=== PATIENT | female | born 1955 | race Caucasian/White ===

== ENCOUNTER → 2021-02-25 | Outpatient (CLI) | payer MEDICARE, OTHER ==
--- NOTE | 2021-02-26 05:06 | MR ---
EXAMINATION TYPE: MR knee LT wo con DATE OF EXAM: 02/25/2021 COMPARISON: HISTORY: Left knee pain and swelling for 1 month. Multiplanar multiecho imaging of the left knee was performed without contrast. The anterior and posterior cruciate ligaments are intact. There is horizontal tear through the can handler ior horn of the medial meniscus extending to the posterior and inferior surface. The lateral meniscus appears intact. The collateral ligaments appear intact. There is no evidence for fracture. I see no bony destructive process. There is mild knee joint effusion. There is subcutaneous edema anterior to the patella. IMPRESSION: No evidence of ligamentous tear. Knee joint effusion. Moderate oblique tear through the posterior horn of the medial meniscus. Anterio r subcutaneous edema.
== END | disposition home or self-care (01) ==
LOC: RADMRIMAIN 18:58
PROVIDERS: ATTEND Orthopaedic Surgery
DX: M23.322 Other meniscus derangements, posterior horn of medial meniscus, left knee (principal); M25.462 Effusion, left knee

== ENCOUNTER → 2021-03-10 | Outpatient (CLI) | payer MEDICARE, OTHER ==
[2021-03-10 15:27] LABS: Basophils # (A) 0.04 X 10*3/uL (0.00-0.10); Basophils % (A) 0.6 %; Eosinophils # (A) 0.06 X 10*3/uL (0.04-0.35); Eosinophils % (A) 0.8 %; HCT 40.6 % (37.2-46.3); HGB 13.1 g/dL (12.0-15.0); Lymphocytes # (A) 2.16 X 10*3/uL (0.90-5.00); Lymphocytes % (A) 30.4 %; MCHC 32.3 g/dL (32.0-37.0); MCV 96.2 fL (80.0-97.0); Mean Platelet Volume 11.5 fL (9.5-12.2); Monocytes # (A) 0.42 X 10*3/uL (0.20-1.00); Monocytes % (A) 5.9 %; Neutrophils # (A) 4.39 X 10*3/uL (1.80-7.70); Neutrophils % (A) 61.9 %; Platelet Count 286 X 10*3/uL (140-440); RBC 4.22 X 10*6/uL (4.10-5.20); RDW 12.4 % (11.5-14.5)
[2021-03-10 19:34] LABS: Anion Gap 8.5 mmol/L (4.00-12.00); Carbon Dioxide 26.5 mmol/L (21.6-31.8); Potassium 4.5 mmol/L (3.5-5.5)
== END | disposition home or self-care (01) ==
LOC: LABWHC1 09:28
PROVIDERS: ATTEND Orthopaedic Surgery
DX: Z01.812 Encounter for preprocedural laboratory examination (principal); M23.92 Unspecified internal derangement of left knee
CPT/HCPCS: 36415; 80051; 85025

== ENCOUNTER → 2021-04-03 | Day surgery (SDC) | payer MEDICARE, OTHER ==
[2021-04-01 16:02] VITALS: BMI 26.4
--- NOTE | 2021-04-02 08:58 | HP ---
HISTORY AND PHYSICAL CHIEF COMPLAINT: Left knee pain. 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 She notes medial pain with weightbearing activities along with giving way. She also notes swelling and stiffness. She has tried an exercise program and activity modifications without much relief. PAST MEDICAL HISTORY: Negative. PAST SURGICAL HISTORY: Hysterectomy. CURRENT MEDICATIONS: Advil. ALLERGIES: SULFA. FAMILY HISTORY: Significant for cancer. SOCIAL HISTORY: Negative for current tobacco or alcohol use. REVIEW OF SYSTEMS: Sixteen-point review of systems is otherwise reviewed and is noncontributory. EXAMINATION: The patient is approximately 5 foot 6, 168 pounds of endomorphic habitus. HEENT exam is nonfocal. Neck is supple. She has painless passive motion of her left hip. Straight leg raise is negative. Active motion left knee -12 to 115 degrees of flexion. She has a moderate effusion. She is tender about the medial joint line. Collaterals are stable. Cisco is negative. Enrique's elicits medial pain. Her distal neurovascular exam appears intact in the left lower extremity. MRI report left knee 02/25/2021 shows a posterior medial meniscal tear. IMPRESSION: Internal derangement, left knee with symptomatic medial meniscal tear. RECOMMENDATIONS: I talked to the patient at length regarding her condition and treatment options. At this point, she is having persistent/progressive pain and mechanical symptoms despite previous conservative measures. After thorough discussion, she opts to proceed with surgery. We will plan to proceed with arthroscopic evaluation with probable partial medial meniscectomy. Risks and benefits were discussed at length in layman's terms. MMODL / IJN: [id number] /
[~2021-04-03] MED LIST: DEXAMETHASONE SOD PHOSPHATE 4 MG/ML 1 ML VIAL IV ONE; HYDROmorphone 0.5 MG/0.5 ML SYRINGE IVP ONE; HYDROmorphone 0.5 MG/0.5 ML SYRINGE IVP PRN; KETOROLAC 15 MG/ML 1 ML VIAL ONE; LACTATED RINGERS 1,000 ML IV ONE; LACTATED RINGERS 1,000 ML IV SCH; LIDOCAINE 1% INJ 10MG/ML (20 ML MDV) ONE; MIDAZOLAM 2 MG/2 ML VIAL IV PRN; MIDAZOLAM 2 MG/2 ML VIAL ONE; PROPOFOL 10 MG/ML 20 ML VIAL IV ONE; diphenhydrAMINE 50 MG/ML 1 ML VIAL IVP ONE; diphenhydrAMINE 50 MG/ML 1 ML VIAL ONE; fentaNYL (PF) 50 MCG/ML 2 ML AMP ONE
[2021-04-03] MEDS: ONDANSETRON 4 MG/2 ML VIAL IVP ONE ×2 (07:21→10:04)
--- NOTE | 2021-04-03 09:05 | P.OP ---
Date of Procedure: 04/03/21 Preoperative Diagnosis: Left knee medial meniscal tear Postoperative Diagnosis: Same Procedure(s) Performed: Left knee arthroscopic partial medial meniscectomy [facility] Surgeon: Tay Yuan Estimated Blood Loss (ml): 10 Pathology: none sent Condition: stable Disposition: PACU Indications for Procedure: The patient's a 66-year-old female presents with progressive left knee pain and mechanical symptoms despite previous conservative measures. A discussion of the risks and benefits of operative intervention versus continued conservative measures was made with patient. She opted to proceed with surgery. Operative risks to include infection, neurovascular injury, development of blood clots, possible incomplete resolution of symptoms, possible worsening symptoms and need for subsequent procedures was discussed. Informed consent was obtained. Operative Findings: As below Description of Procedure: The patient was brought to the operating room, and after induction of general anesthesia examined the left knee. Collaterals were stable, Cisco was negative, and posterior drawer was negative. The left lower extremity was prepped and draped in a normal fashion. A superior lateral portal was made thro ugh a 3 mm skin incision superior and lateral to the patella. This was used for outflow. A lateral portal was made through a 5 mm vertical skin incision lateral to the patella tendon above the joint line. Diagnostic arthroscopy was performed. On inspection of the medial compartment, a complex tear involving the middle to posterior one third of the medial meniscus was noted in the white- red junction. This was debrided back to stable base with straight baskets and a motorized shaver. The remaining medial meniscus was stable and intact. Grade 2 chondral changes were noted diffusely in the medial compartment. On inspection of the notch, the anterior cruciate ligament appeared to be intact. On inspection of the lateral compartment, no significant cartilage or meniscal pathology was noted. On inspection of the patellofemoral articulation on there is chondral fibrillation however no loose chondral fragments. The gutters were clear debris. The knee was then thoroughly irrigated. The portals were closed with Steri-Strips. A sterile dressing was applied in addition to a compression stocking. The patient was awoken from general anesthesia and transferred to recovery room in good condition. Blood loss was estimated at 10 mL. No complications were incurred.
[2021-04-03 09:14] VITALS: TEMP 97.9
[2021-04-03 11:55] VITALS: BP 154/89; PULSE 80; RESP 17
== END | disposition home or self-care (01) ==
LOC: OR 06:44
PROVIDERS: ATTEND Orthopaedic Surgery
DX: S83.242A Other tear of medial meniscus, current injury, left knee, initial encounter (principal); Z88.2 Allergy status to sulfonamides; Z88.5 Allergy status to narcotic agent
CPT/HCPCS: 29881; J2250; J1200; J1100; J0690; J2405; J2001; J3010; J1885; J2704; J1170

== ENCOUNTER → 2022-04-08 | Outpatient (CLI) | payer MEDICARE, OTHER | END | disposition home or self-care (01) | LOC: LABPAT 08:48 | PROVIDERS: ATTEND Orthopaedic Surgery | DX: Z01.812 Encounter for preprocedural laboratory examination (principal); Z22.322 Carrier or suspected carrier of Methicillin resistant Staphylococcus aureus; M17.12 Unilateral primary osteoarthritis, left knee | CPT/HCPCS: 87070 ==

== ENCOUNTER → 2022-04-27 | Day surgery (SDC) | payer MEDICARE, OTHER ==
[2022-04-21 09:37] VITALS: BMI 26.0
--- NOTE | 2022-04-26 12:24 | HP ---
HISTORY AND PHYSICAL CHIEF COMPLAINT: Left knee pain. 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 She is having pain with weightbearing activities along with swelling and stiffness. She had previous injections along with medications, without much relief. She has also had a previous arthroscopy. PAST MEDICAL HISTORY: Significant for arthritis. PAST SURGICAL HISTORY: Significant for hysterectomy and left knee arthroscopy. CURRENT MEDICATIONS: Ibuprofen. ALLERGIES: SULFA. FAMILY HISTORY: Significant for cancer. SOCIAL HISTORY: Negative for current tobacco or alcohol use. REVIEW OF SYSTEMS: 16-point review of systems otherwise reviewed and is noncontributory. PHYSICAL EXAMINATION: On examination, the patient is approximately 5 foot 6, 160 pounds of mesomorphic habitus. HEENT exam is nonfocal. Neck is supple. She has painless passive motion of the left hip. Straight-leg raise is negative. Active motion left knee -13 to 90 degrees of flexion. She has a mild effusion. She is tender about the medial joint line. Collaterals are stable. Cisco is negative. Enrique's is equivocal. She has genu varum alignment. Her distal neurovascular exam appears intact in the left lower extremity. Previous weightbearing notch, lateral Merchant views of the left knee obtained in the office show severe medial compartment narrowing. IMPRESSION: Left knee severe medial and moderate patellofemoral compartment osteoarthrosis. PLAN: I talked to the patient at length regarding her condition along with treatment options. At this point she is quite limited and symptomatic secondary to osteoarthrosis despite previous conservative measures. After thorough discussion, she opts to proceed with surgery. We will plan to proceed with a left total knee arthroplasty. We will institute DVT prophylaxis postoperatively. Risks and benefits were discussed at length in layman's terms. MMODL / IJN: [id number] /
[~2022-04-27] MED LIST changes: +ACETAMINOPHEN TAB 500 MG TAB PO PRN; +HYDROcodone/APAP 5-325MG 1 EACH TAB PO ONE; +HYDROcodone/APAP 5-325MG 1 EACH TAB PO PRN; +HYDROcodone/APAP 7.5-325MG 1 EACH TAB PO PRN; -HYDROmorphone 0.5 MG/0.5 ML SYRINGE IVP ONE; -LACTATED RINGERS 1,000 ML IV SCH; +LIDOCAINE 1% (10MG/ML) FOR IV START INTRADERMA PRN; -LIDOCAINE 1% INJ 10MG/ML (20 ML MDV) ONE; +LIDOCAINE 2% INJ 20 MG/ML (2 ML VIAL) ONE; +MELOXICAM 7.5 MG TAB PO PRN; -MIDAZOLAM 2 MG/2 ML VIAL IV PRN; +MIDAZOLAM 2 MG/2 ML VIAL IVP ONE; -MIDAZOLAM 2 MG/2 ML VIAL ONE; +NALOXONE 0.4 MG/ML 1 ML VIAL IV PRN; +ONDANSETRON 4 MG/2 ML VIAL IVP ONE; +ONDANSETRON 4 MG/2 ML VIAL IVP PRN; +RIVAROXABAN 10 MG TAB PO SCH; +ROPIVACAINE 0.2%-NS ON-Q PUMP 1,090 MG, EMPTY PAIN BALL 1 EACH MISCELLANE PRN; +ROPIVACAINE 0.2%-NS ON-Q PUMP 2 MG/ML EACH MISCELLANE ONE; +ROPIVACAINE 5MG/ML 20ML VIAL ONE; +SENNOSIDES-DOCUSATE SODIUM 1 EACH TAB PO SCH; +TRANEXAMIC ACID IN NACL,ISO-OS 1,000 MG in SALINE 1 100ML.BAG IVPB PRN; +TRANEXAMIC ACID IN NACL,ISO-OS 1,000 MG/100 ML BAG ONE; +ceFAZolin 1,000 MG in SODIUM CHLORIDE 0.9% 1,000 ML IRRIGATION ONE; -diphenhydrAMINE 50 MG/ML 1 ML VIAL IVP ONE; +fentaNYL (PF) 50 MCG/ML 2 ML AMP IVP ONE
[2022-04-27] MEDS: LACTATED RINGERS 1,000 ML IV SCH ×2 (06:55→07:44)
--- NOTE | 2022-04-27 09:28 | P.ANPRN ---
Procedure Note - Anesthesia - Nerve Block Performed Left Adductor Canal Time Out Performed: Yes (:) Date of Procedure: 04/27/22 Procedure Start Time: Procedure Stop Time: Location of Patient: PreOp Indication: Acute Post-Operative Pain, Requested by Surgeon (Dr Yuan) Sedation Type: Sedate with meaningful contact maintained Preparation: Sterile Prep, Sterile Dressing Position: Supine Catheter: Indwelling Needle Types: Pajunk Needle Gauge: 21 Ultrasound used to visualize needle placement: Yes Ultrasound used to observe medication spread: Yes Injectate: 0.5% Ropivacaine (see comment for volume) (15cc) Blood Aspirated: No Pain Paresthesia on Injection Noted: No Resistance on Injection: Normal Image Stored and Saved: Yes Events: Uneventful and Well Tolerated
--- NOTE | 2022-04-27 09:29 | P.ANPRN ---
Procedure Note - Anesthesia - Nerve Block Performed Left iPack Time Out Performed: Yes Date of Procedure: 04/27/22 Procedure Start Time: : Procedure Stop Time: : Location of Patient: PreOp Indication: Acute Post-Operative Pain, Requested by Surgeon (Dr Yuan) Sedation Type: Sedate with meaningful contact maintained Preparation: Sterile Prep Position: Supine Catheter: None Needle Types: Pajunk Needle Gauge: 21 Ultrasound used to visualize needle placement: Yes Ultrasound used to observe medication spread: Yes Injectate: 0.5% Ropivacaine (see comment for volume) (15cc) Blood Aspirated: No Pain Paresthesia on Injection Noted: No Resistance on Injection: Normal Image Stored and Saved: Yes Events: Uneventful and Well Tolerated
--- NOTE | 2022-04-27 09:35 | P.OP ---
Date of Procedure: 04/27/22 Preoperative Diagnosis: Left knee severe tricompartmental osteoarthrosis Postoperative Diagnosis: Same Procedure(s) Performed: Left total knee arthroplastycementedcruciate retaining Implants: Depuy attuned size 6 narrow cemented femoral component, size 5 cemented tibial component, 10 mm articular surface, 35 mm cemented patellar component. This is a cruciate retaining implant. 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 A discussion of the risks and benefits of operative intervention versus continued conservative measures made with patient. She opted to proceed. Operative risks to include infection, neurovascular injury, development of blood clots, fracture, possible need for subsequent subsequent procedures was discussed. Informed consent was obtained. Operative Findings: As below Description of Procedure: The patient was brought to the operating room, and after induction of spinal anesthesia the left lower extremity was prepped and draped in a normal fashion. The tourniquet was inflated to 270 mmHg. A longitudinal incision extending 3 finger breaths above the superior pole of the patella extending to the medial aspect the tibial tubercle was then made. The skin and subcutaneous tissues were divided sharply. Electrocautery was used for hemostasis. A medial parapatellar arthrotomy was then performed. The medial soft tissues to include the superficial and deep portions of the medial collateral ligament as well as the medial hamstring tendons were elevated subperiosteally. The proximal medial tibia osteophytes were carefully removed. The patella was everted. The knee was flexed. A portion of the retropatellar fat pad was excised sharply. The anterior cruciate ligament was sacrificed. A starting hole was made in the distal femur 1 cm anterior to the posterior cruciate origin. An intramedullary femoral guide was gently inserted planning on 5 valgus distal cut with 9 mm distal resection. The cutting block was pinned in place. The distal cut was then made. The posterior referencing sizing guide was utilized. 3 of external rotation was built into the system and verified off the trans- epicondylar axis and the posterior condyles. I felt size 6 narrow was most appropriate. The cutting block was pinned in place. The anterior, posterior, and chamfer cuts were then made. The bone fragments were removed. A sulcus cut was then made with the appropriate guide. The trial size 6 narrow femoral component was then placed and was fully seated. There was good anterior to posterior and medial to lateral fit. The distal peg holes were then drilled. The trial component was then removed. Attention was then paid towards preparing the proximal tibia. An extra medullary guide was utilized in line with the tibial shaft and second metatarsal distally. A 7 posterior slope was planned. I planned on 2 mm resection from the medial compartment. The cutting block was pinned in place. The proximal tibial cut was then made. The bone was removed in one fragment. The remnants of the medial and lateral menisci were excised the capsule junction with electrocautery. The tibia sized most appropriately at size 5. The posterior osteophytes off the distal femur were carefully removed with a curved osteotome. The trial tibial and femoral components were placed along with a 10 millimeters articular surface. I was able to obtain full flexion and extension with good stability with varus and valgus stress. After several flexion and extension cycles, the tibial rotation was marked with electrocautery in line with the medial one third of the tibial tubercle. Attention was then paid towards preparing the patella. A patella reamer was utilized taking this down to 14 mm of bone stock. A good flush cut was made. The patella sized most appropriately at 35 millimeters. The peg holes were then drilled. The trial component was placed. The knee was taken through a range of motion. I had good patellofemoral tracking with no hands technique. The trial components were then removed. The tibia was prepared in the appropriate rotation with appropriate drill and keel punch. The flexion and extension gaps were checked and felt to be symmetric. The posterior soft tissues were injected with ropivacaine. The bony surfaces were prepared with pulsatile lavage and dried. The deep tibial component was then cemented in place and was fully seated. Excess cement was removed. The femoral component was cemented in place and was fully seated. Again excess cement was removed. The trial 10 millimeters surface was then inserted in the knee was put in full extension. The patella component was cemented in place. After the cement had sufficiently hardened, the knee was again taken through a range of motion. Again there was good stability in flexion and extension with varus and valgus stress. The trial articular surface was then removed. The final articular surface was placed and was impacted. Care was taken to avoid any soft tissue interposition. Pulsatile lavage was again utilized. The tourniquet was deflated with approximately 50 minutes total tourniquet time. There was minimal drainage therefore a deep drain was not placed. The medial parapatellar arthrotomy was then closed with #2 Ethibond suture. The subcutaneous tissues were reapproximated interrupted 2- 0 Vicryl sutures. The skin was reapproximated with 3-0 subarticular strata fix suture. Skin tape and adhesive was applied. A sterile dressing was applied. The patient was then awoken from sedation and transferred to recovery room in good condition. Blood loss was estimated at 50 milliliters. No complications were incurred. Sponge and needle counts were correct at the end the case. Mane HART assisted during the major components this case to include exposure, bone resection, and implantation.
--- NOTE | 2022-04-27 10:01 | XR ---
EXAMINATION TYPE: XR knee limited LT DATE OF EXAM: 04/27/2022 9:56 AM INDICATION: Patient age:Female; 67 years old; Reason for study: Evaluation for Postop abnormality and alignment; COMPARISON: MR knee 03/01/2021. TECHNIQUE: The Left knee(s) was examined in 3 projections. Frontal, lateral and oblique. FINDINGS: Total left knee arthroplasty changes. Hardware appears intact. There is appropriate anatom ic alignment. No evidence of acute fracture. Scattered lucencies consistent with intra-articular and subcutaneous postsurgical gas. IMPRESSION: 1. Post left knee arthroplasty changes appropriate hardware position without evidence of fracture.
[2022-04-27 10:03] VITALS: TEMP 96.8
[2022-04-27 10:16] VITALS: RESP 16
[2022-04-27 11:44] VITALS: BP 147/80; PULSE 72
== END | disposition home health service (06) ==
LOC: OR 05:57
PROVIDERS: ATTEND Orthopaedic Surgery
DX: M17.12 Unilateral primary osteoarthritis, left knee (principal); G89.18 Other acute postprocedural pain; E78.5 Hyperlipidemia, unspecified; Z88.2 Allergy status to sulfonamides; Z88.8 Allergy status to other drugs, medicaments and biological substances; Z88.3 Allergy status to other anti-infective agents; Z80.0 Family history of malignant neoplasm of digestive organs; Z80.8 Family history of malignant neoplasm of other organs or systems; Z83.3 Family history of diabetes mellitus; Z82.49 Family history of ischemic heart disease and other diseases of the circulatory system; Z84.89 Family history of other specified conditions; Z80.6 Family history of leukemia
CPT/HCPCS: 64999 ×2; 76942 ×2; 64447; 27447; 97110; 97161; 64448; 88300; 73560; C1713 ×2; C1776; J2250; J1200; J1100; J0690 ×2; J2405; J3010; J1885; J2704; J1170; J2795 ×2; J1790; J2001

== ENCOUNTER → 2022-08-06 | Outpatient (CLI) | payer MEDICARE, OTHER ==
--- NOTE | 2022-08-09 07:43 | MM ---
Reason for Exam: Screening (asymptomatic). Last mammogram was performed 2 year(s) and 0 month(s) ago. Patient History: Menarche at age 15. First Full-Term at age 20. Hysterectomy at age 47. Postmenopausal. Sister had breast cancer under age 50. Risk Values: Natalia 5 year model risk: 3.0%. NCI Lifetime model risk: 9.5%. Prior Study Comparison: 02/12/2019 Bilateral MG 3D screening mammo w/cad, [facility]. 07/24/2020 Left MG 3D work up w/cad LT - 2, [facility]. 07/24/2020 Bilateral MG 3D screening mammo w/cad, [facility]. Tissue Density: The breast tissue is heterogeneously dense. This may lower the sensitivity of mammography. Findings: Analyzed By CAD. There is no suspicious group of microcalcifications or new suspicious mass in either breast. Similar-appearing calcifications bilaterally. Overall Assessment: Benign, BI-RAD 2 Management: Screening Mammogram of both breasts in 1 year. A clinical breast exam by your physician is recommended on an annual basis and results should be correlated with mammographic findings. [facility] will attempt to contact patient to return for supplemental views and ultrasound if indicated. Electronically signed and approved by: Donnell Pulido DO
== END | disposition home or self-care (01) ==
LOC: RADMAMWWP 06:58
PROVIDERS: ATTEND Family Medicine
DX: Z12.31 Encounter for screening mammogram for malignant neoplasm of breast (principal)
CPT/HCPCS: 77063; 77067

== ENCOUNTER → 2023-08-25 | Outpatient (CLI) | payer MEDICARE, OTHER ==
--- NOTE | 2023-08-25 08:26 | MM ---
Reason for Exam: Screening (asymptomatic). Last mammogram was performed 1 year(s) and 1 month(s) ago. Patient History: Menarche at age 15. First Full-Term at age 20. Hysterectomy at age 47. Postmenopausal. Sister had breast cancer under age 50. Risk Values: Natalia 5 year model risk: 3.0%. NCI Lifetime model risk: 9.1%. Prior Study Comparison: 07/24/2020 Left MG 3D work up w/cad LT - 2, [facility]. 07/24/2020 Bilateral MG 3D screening mammo w/cad, [facility]. 08/06/2022 Bilateral MG 3D screening mammo w/cad, [facility]. Tissue Density: The breast tissue is heterogeneously dense. This may lower the sensitivity of mammography. Findings: Analyzed By CAD. Right: Asymmetry right breast posterior nipple line on CC view 7.5 cm nipple measuring 12 mm. Asymmetry left breast posterior nipple and slightly medial on CC view 5.8 mm the nipple measuring 11 mm is stable from priors. Left: There is no suspicious group of microcalcifications or new suspicious mass. Overall Assessment: Incomplete: need additional imaging evaluation, BI-RAD 0 Management: Diagnostic Mammogram of the right breast. [facility] will attempt to contact patient to return for supplemental views and ultrasound if indicated. Patient should continue monthly self-breast exams. A clinical breast exam by your physician is recommended on an annual basis. This exam should not preclude additional follow-up of suspicious palpable abnormalities. Note on Natalia scores and lifetime risk: 1. A Natalia score greater than 3% is considered moderate risk. If this is the case, consider specialist referral to assess eligibility for a risk reducing agent. 2. If overall lifetime risk for the development of breast cancer is 20% or higher, the patient may qualify for future screening with alternating mammogram and breast MRI. Electronically signed and approved by: Donnell Pulido DO
== END | disposition home or self-care (01) ==
LOC: RADMAMWWP 07:42
PROVIDERS: ATTEND Family Medicine
DX: Z12.31 Encounter for screening mammogram for malignant neoplasm of breast (principal); Z78.0 Asymptomatic menopausal state; Z80.3 Family history of malignant neoplasm of breast
CPT/HCPCS: 77063; 77067

== ENCOUNTER → 2023-09-05 | Outpatient (CLI) | payer MEDICARE, OTHER ==
--- NOTE | 2023-09-05 08:37 | MM ---
Reason for Exam: Additional evaluation requested from abnormal screening. Last screening mammogram was performed less than 1 month ago. Patient History: Menarche at age 15. First Full-Term at age 20. Hysterectomy at age 47. Postmenopausal. Sister had breast cancer under age 50. Risk Values: Natalia 5 year model risk: 3.0%. NCI Lifetime model risk: 9.1%. Tissue Density: Right: The breast tissue is heterogeneously dense. This may lower the sensitivity of mammography. Findings: Analyzed By CAD. Upper-outer quadrant 6.5 cm from nipple there is an area of spiculation which persists. Ultrasound is recommended. Consultations noted. Overall Assessment: Incomplete: need additional imaging evaluation, BI-RAD 0 Management: Diagnostic Breast Ultrasound of the right breast. . Results were given to the patient verbally at the time of exam. Patient should continue monthly self-breast exams. A clinical breast exam by your physician is recommended on an annual basis. This exam should not preclude additional follow-up of suspicious palpable abnormalities. Note on Natalia scores and lifetime risk: 1. A Natalia score greater than 3% is considered moderate risk. If this is the case, consider specialist referral to assess eligibility for a risk reducing agent. 2. If overall lifetime risk for the development of breast cancer is 20% or higher, the patient may qualify for future screening with alternating mammogram and breast MRI. Electronically signed and approved by: Trey Kendrick M.D. Radiologis
--- NOTE | 2023-09-05 09:07 | USB ---
Reason for Exam: Additional evaluation requested from abnormal screening. Patient History: Menarche at age 15. First Full-Term at age 20. Hysterectomy at age 47. Postmenopausal. Sister had breast cancer under age 50. Risk Values: Natalia 5 year model risk: 3.0%. NCI Lifetime model risk: 9.1%. Technique: Method: Targeted. Prior Study Comparison: 07/24/2020 Bilateral MG 3D screening mammo w/cad, [facility]. 08/06/2022 Bilateral MG 3D screening mammo w/cad, [facility]. 08/25/2023 Bilateral MG 3D screening mammo w/cad, [facility]. Findings: The upper outer quadrant of the right breast, the axilla of the right breast and the retroareolar of the right breast were scanned. Hypoechoic mass at the right 11:00 position 6 cm from the nipple measuring approximately 1.8 x 0.6 x 1.3 cm.. Overall Assessment: Suspicious, BI-RAD 4 Management: Ultrasound Core Biopsy of the right breast. A clinical breast exam by your physician is recommended on an annual basis and results should be correlated with mammographic findings. This exam should not preclude additional follow-up of suspicious palpable abnormalities. Results were given to the patient verbally at the time of exam. Electronically signed and approved by: Trey Kendrick M.D. Radiologis
== END | disposition home or self-care (01) ==
LOC: RADMAMWWP 08:04
PROVIDERS: ATTEND Family Medicine
DX: N63.11 Unspecified lump in the right breast, upper outer quadrant (principal); R92.331 Mammographic heterogeneous density, right breast; Z78.0 Asymptomatic menopausal state; Z80.3 Family history of malignant neoplasm of breast
CPT/HCPCS: 77065; 76642; G0279; 77061

== ENCOUNTER → 2023-09-15 | Day surgery (SDC) | payer MEDICARE, OTHER ==
--- NOTE | 2023-09-21 10:31 | MM ---
Reason for Exam: Post Procedure Mammogram. Last screening mammogram was performed less than 1 month ago. Patient History: Menarche at age 15. First Full-Term at age 20. Hysterectomy at age 47. Postmenopausal. Sister had breast cancer under age 50. Risk Values: Natalia 5 year model risk: 3.0%. NCI Lifetime model risk: 9.1%. Prior Study Comparison: 08/06/2022 Bilateral MG 3D screening mammo w/cad, [facility]. 08/25/2023 Bilateral MG 3D screening mammo w/cad, [facility]. 09/05/2023 Right MG 3D work up w/cad RT, [facility]. Tissue Density: Right: The breast tissue is heterogeneously dense. This may lower the sensitivity of mammography. Pathology Description: Location: 11 o'clock. Marker Left Behind. Needle Type: Celero Cores: 3 Gauge: 12 The procedure of ultrasound guided core biopsy was explained to the patient. Benefits, alternatives, and risks were discussed. An informed consent was then obtained. The patient was placed in supine positioning for imaging and for the procedure. The overlying skin was prepped and draped in usual sterile fashion. Lidocaine buffered with bicarbonate was used as anesthetic into the skin and subcutaneous tissue up to area of concern in the right 11:00 breast. A moody was made with surgical scalpel. Under ultrasound guidance, a 12-gauge vacuum assisted biopsy gun device was used to obtain 3 core samples. Following this, a biopsy clip was left in lesion. The patient tolerated the procedure well without any immediate complication. The patient was kept in the radiology department for short stay after the procedure and then discharged home in stable condition. Postprocedure mammogram: The patient was transferred to mammography for physician ordered post procedure mammogram for clip placement verification. Impression: Successful, uncomplicated ultrasound guided core biopsy of area of concern in the right 11:00 breast, full pathology results to follow. Pathology Results: Result: Benign, Fibroadenoma. RIGHT BREAST, 11:00, ULTRASOUND GUIDED NEEDLE CORE BIOPSY: Hyalinized fibroadenoma with microcalcifications. Overall Assessment: Benign Assessment: MG diagnostic mammo RT wo CAD - Right: Benign, BI-RAD 2. Management: Diagnostic Mammogram of the right breast in 6 months. Electronically signed and approved by: Trey Kednrick M.D. Radiologis
== END ==
LOC: RADUSWWP 12:44
PROVIDERS: ATTEND Surgery
DX: D24.1 Benign neoplasm of right breast (principal)
CPT/HCPCS: 77065; 19083; A4648

== ENCOUNTER → 2023-09-28 | Outpatient (CLI) | payer MEDICARE, OTHER ==
[2023-09-28 08:30] VITALS: BP 175/91; PULSE 90; RESP 18; TEMP 97.7
--- NOTE | 2023-09-28 08:35 | P.GSHP ---
History of Present Illness H&P Date: 09/28/23 Chief Complaint: mass right breast Princess is a 68 year old female seen in consultation for Dr. Aguiar regarding a lesion in the right breast. She had a right breast mammogram on 08-25-23. This led to further workup of the right breast and an ultrasound core biopsy on 09-15. This was a fibroadenoma. The lesion was 1.8 by 1.3 cm in size. The patient did not feel anything in her breasts. She gets mammograms every year. Approximately 30 years ago she had a fibroadenoma removed from the left breast. Otherwise she has not had any surgery on her breast. She is not complaining of any pain in her breast. She tolerated the procedure without difficulty. She's not had any recent trauma or infection in the breast. Caffeine: 1 can/week of pop nicotine: none chocolate: occasional BCP: used for 4 years in the remote past Family History: sister: breast cancer mets to bones father: colon cancer sister: leukemia Hormonal History: menarche: 14 , breast fed: no, age at first : 21 menopause: hysterectomy in 40's did not take ovaries done for bleeding Surgical History: hysterectomy left knee replacement bilateral cataract surgery left breast surgery tonsillectomy Medical History: no problems Social History: Nicotine: Negative Alcohol: Negative Drugs:negative - Constitutional Constitutional: Denies chills, Denies fever - EENT Eyes: denies blurred vision, denies pain Ears: bilateral: tinnitus, deny: decreased hearing Ears, nose, mouth and throat: Denies headache, Denies sore throat - Breasts Breasts: bilateral: as per HPI - Cardiovascular Cardiovascular: Denies chest pain, Denies shortness of breath - Respiratory Respiratory: Reports cough - Gastrointestinal Gastrointestinal: Denies abdominal pain, Denies diarrhea, Denies nausea, Denies vomiting - Genitourinary (Female) Genitourinary: Denies dysuria, Denies hematuria - Menstruation Menstruation: Reports postmenopausal - Musculoskeletal Musculoskeletal: Reports as per HPI - Integumentary Integumentary: Denies pruritus, Denies rash - Neurological Neurological: Denies numbness, Denies weakness - Psychiatric Psychiatric: Denies anxiety, Denies depression - Endocrine Endocrine: Denies fatigue, Denies weight change - Hematologic/Lymphatic Comment: none - Allergic/Immunologic Allergic/Immunologic: Reports seasonal allergies Past Medical History Additional Past Medical History / Comment(s): left knee pain and swelling, History of Any Multi-Drug Resistant Organisms: None Reported Past Surgical History: Breast Surgery, Hysterectomy, Orthopedic Surgery, Tonsillectomy Additional Past Surgical History / Comment(s): Left knee replacement March 2022. fibrocystic tumor removed left breast Past Anesthesia/Blood Transfusion Reactions: Motion Sickness, Postoperative Nausea & Vomiting (PONV) Additional Past Anesthesia/Blood Transfusion Reaction / Comment(s): "severe PONV " Past Psychological History: No Psychological Hx Reported Smoking Status: Never smoker Past Alcohol Use History: None Reported Past Drug Use History: None Reported - Past Family History Father Family Medical History: Cancer Sister(s) Family Medical History: Cancer, Deep Vein Thrombosis (DVT) Additional Family Medical History / Comment(s): leukemia Medications and Allergies Home Medications Medication Instructions Recorded Confirmed Type No Known Home Medications 09/06/23 09/28/23 History Allergies Allergy/AdvReac Type Severity Reaction Status Date / Time azithromycin Allergy Rash/Hives Verified 09/28/23 08:10 [From Zithromax Z-Lambert] Sulfa (Sulfonamide Allergy Rash/Hives Verified 09/28/23 08:10 Antibiotics) Surgical - Exam - General no distress - Eyes normal ocular movement - ENT no hearing loss - Neck trachea midline - Respiratory normal respiratory effort, clear to auscultation - Cardiovascular Rhythm: regular Heart Sounds: normal: S1, S2 - Abdomen Abdomen: soft, non tender, no guarding, no rigid, no rebound - Integumentary normal turgor - Neurologic no disoriented, no combative - Musculoskeletal normal gait - Psychiatric oriented to time, oriented to person, oriented to place, speech is normal, memory intact Breast Exam: BRA: 38C Inspection: Bilateral grade 2/3 ptosis; mild ecchymosis right breast upper outer quadrant at biopsy site Palpation: Right breast: Multi-positional exam dense tissue no dominant masses or nodules of concern fibrocystic changes Right axilla: No adenopathy of concern Left breast: Multi-positional exam dense tissue no dominant masses or nodules of concern Left axilla: No adenopathy of concern Results Mammogram and ultrasound personally reviewed Assessment and Plan Assessment: Impression: Right breast upper outer quadrant 11 o'clock position biopsy-proven fibroadenoma Fibrocystic breast changes Plan: Close surveillance of biopsy-proven fibroadenoma right breast ultrasound of the area in 6 months to assure this is not increased in size Follow-up in 6 months Patient to follow up sooner any questions or concerns CC: Dr. Aguiar
== END ==
LOC: WWCWWP 07:58
PROVIDERS: ATTEND Surgery
DX: R92.8 Other abnormal and inconclusive findings on diagnostic imaging of breast (principal); D24.1 Benign neoplasm of right breast; N60.11 Diffuse cystic mastopathy of right breast; Z80.3 Family history of malignant neoplasm of breast; Z90.710 Acquired absence of both cervix and uterus; Z88.1 Allergy status to other antibiotic agents; Z88.2 Allergy status to sulfonamides

== ENCOUNTER → 2024-03-19 | Outpatient (CLI) | payer MEDICARE, OTHER ==
--- NOTE | 2024-03-19 10:40 | MM ---
Reason for Exam: Follow-up at short interval from prior study. Last screening mammogram was performed 7 month(s) ago. Patient History: Menarche at age 15. First Full-Term at age 20. Hysterectomy at age 47. Postmenopausal. 09/15/2023, Benign US biopsy breast VAD RT on the right side. Sister had breast cancer, age 45. Risk Values: Natalia 5 year model risk: 3.6%. NCI Lifetime model risk: 10.2%. Prior Study Comparison: 08/25/2023 Bilateral MG 3D screening mammo w/cad, [facility]. 09/05/2023 Right MG 3D work up w/cad RT, [facility]. 09/15/2023 Right MG diagnostic mammo RT wo CAD, [facility]. Tissue Density: Right: The breasts are heterogeneously dense, which may obscure small masses. Findings: Analyzed By CAD. Recent biopsy, partially calcified nodule posterior upper quadrant with clip. However, the present exam shows an area of architectural distortion in the upper outer quadrant middle depth for which further ultrasound evaluation is recommended. Overall Assessment: Incomplete: need additional imaging evaluation, BI-RAD 0 Management: Diagnostic Breast Ultrasound of the right breast. Electronically signed and approved by: Stveen Jackson M.D. Radiologist
--- NOTE | 2024-03-19 11:06 | USB ---
Reason for Exam: Additional evaluation requested from prior study. Patient History: Menarche at age 15. First Full-Term at age 20. Hysterectomy at age 47. Postmenopausal. 09/15/2023, Benign US biopsy breast VAD RT on the right side. Sister had breast cancer, age 45. Risk Values: Natalia 5 year model risk: 3.6%. NCI Lifetime model risk: 10.2%. Technique: Method: Targeted. Prior Study Comparison: 08/25/2023 Bilateral MG 3D screening mammo w/cad, [facility]. 09/05/2023 Right MG 3D work up w/cad RT, [facility]. 09/15/2023 Right MG diagnostic mammo RT wo CAD, [facility]. Findings: The upper outer quadrant of the right breast, the axilla of the right breast and the retroareolar of the right breast were scanned. Targeted ultrasound upper outer quadrant right breast including scanning of the subareolar region and axilla. At the 11:00 position, 6 cm from the nipple, the recently biopsied fibroadenoma with calcifications is identified currently measuring 1.1 x 0.9 x 0.7 cm with adjacent microclip. Previously not seen just adjacent at the 12:00 position is a 5 x 4 x 4 mm hypoechoic nodule. Tissue sampling is recommended though this likely does not correspond to the suspicious mammographic finding. Stereotactic core needle biopsy recommended for the distortion. No other solid or cystic lesion or axillary lymphadenopathy. Overall Assessment: Suspicious, BI-RAD 4 Management: Stereotactic Core Biopsy of the right breast. Ultrasound Core Biopsy of the right breast. Ultrasound-guided biopsy small 5 mm 12:00 lesion. Stereotactic core needle biopsy suspicious upper-outer quadrant architectural distortion. Electronically signed and approved by: Steven Jackson M.D. Radiologist
== END | disposition home or self-care (01) ==
LOC: RADMAMWWP 09:47
PROVIDERS: ATTEND Surgery
DX: R92.331 Mammographic heterogeneous density, right breast (principal); R92.1 Mammographic calcification found on diagnostic imaging of breast; Z80.3 Family history of malignant neoplasm of breast; Z78.0 Asymptomatic menopausal state
CPT/HCPCS: 77065; 76642; G0279; 77061

== ENCOUNTER → 2024-03-29 | Outpatient (CLI) | payer MEDICARE, OTHER ==
--- NOTE | 2024-03-29 11:11 | NM ---
EXAMINATION TYPE: NM bone 3 phase DATE OF EXAM: 03/29/2024 COMPARISON: NONE CLINICAL INDICATION: Female, 69 years old with history of T84.84XA pain presence of artificial device ; Triple phase bone scintigraphy was performed following the injection of 23.7 mCi Tc 99m MDP. Immedia te images and 3 hours post injection images acquired. FINDINGS: On the delayed and blood pool images there is increased radiotracer accumulation along the femoral co mponents of the patient's prosthesis which may reflect underlying infection. Correlate clinically. IMPRESSION: As above
== END | disposition home or self-care (01) ==
LOC: RADNMMAIN 07:12
PROVIDERS: ATTEND Orthopaedic Surgery
DX: T84.84XA Pain due to internal orthopedic prosthetic devices, implants and grafts, initial encounter (principal)
CPT/HCPCS: 78315; A9503

== ENCOUNTER → 2024-04-05 | Outpatient (CLI) | payer MEDICARE, OTHER ==
[2024-04-05 14:57] LABS: BUN/Creat Ratio 20.12 Ratio (12.00-20.00); Blood Urea Nitrogen 16.1 mg/dL (9.0-27.0); Calcium 9.4 mg/dL (8.7-10.3); Carbon Dioxide 23.2 mmol/L (21.6-31.8); Chloride 106 mmol/L (96-109); Glucose 100 mg/dL (70-110); Potassium 4.6 mmol/L (3.5-5.5); Sodium 141 mmol/L (135-145)
[2024-04-05 14:59] LABS: Basophils # (A) 0.06 X 10*3/uL (0.00-0.10); Basophils % (A) 0.9 %; Eosinophils # (A) 0.07 X 10*3/uL (0.04-0.35); HGB 14.3 g/dL (12.0-15.0); Lymphocytes # (A) 1.84 X 10*3/uL (0.90-5.00); Lymphocytes % (A) 26.4 %; MCH 30.8 pg (27.0-32.0); MCHC 32.5 g/dL (32.0-37.0); MCV 94.6 FL (80.0-97.0); Mean Platelet Volume 11.3 FL (9.5-12.2); Monocytes # (A) 0.57 X 10*3/uL (0.20-1.00); Monocytes % (A) 8.2 %; NRBC Per 100 WBC 0 X 10*3/uL (0.00-0.01); Neutrophils # (A) 4.41 X 10*3/uL (1.80-7.70); Neutrophils % (A) 63.2 %; Platelet Count 283 X 10*3/uL (140-440); RBC 4.65 X 10*6/uL (4.10-5.20); RDW 12.5 % (11.5-14.5); WBC 6.97 X 10*3/uL (4.50-10.00)
[2024-04-05 15:24] LABS: Erythrocyte Sedimentation Rate 13 mm/Hr (0-30)
[2024-04-05 16:38] LABS: INR 0.95 sec (0.93-1.11); Prothrombin Time 10.3 sec (9.9-11.9)
== END | disposition home or self-care (01) ==
LOC: LABPAT 09:15
PROVIDERS: ATTEND Orthopaedic Surgery
DX: Z01.818 Encounter for other preprocedural examination (principal); Z22.322 Carrier or suspected carrier of Methicillin resistant Staphylococcus aureus; T84.84XA Pain due to internal orthopedic prosthetic devices, implants and grafts, initial encounter; Z96.652 Presence of left artificial knee joint; Y79.2 Prosthetic and other implants, materials and accessory orthopedic devices associated with adverse incidents
CPT/HCPCS: 80048; 85025; 85610; 85652; 86140; 87070; 93005

== ENCOUNTER → 2024-04-09 | Day surgery (SDC) | payer MEDICARE, OTHER ==
[2024-04-09] MEDS: ALPRAZolam 0.25 MG TAB PO PRN (08:21)
[2024-04-09 08:27] VITALS: RESP 16
[2024-04-09 09:17] VITALS: BP 141/83; PULSE 76; TEMP 98.2
--- NOTE | 2024-04-16 10:34 | MM ---
Risk Values: [place] 5 year model risk: 3.6%. NCI Lifetime model risk: 10.2%. Prior Study Comparison: 09/05/2023 Right MG 3D work up w/cad RT, [facility]. 09/15/2023 Right MG diagnostic mammo RT wo CAD, [facility]. 03/19/2024 Right MG 3D diag mammo w/cad RT, [facility]. Pathology Description: Marker Left Behind. Approach: CC FA Needle Type: Eviva Cores: 7 Skin Nicks: 1 Gauge: 9 The calcifications in question within the right breast were targeted by the undersigned. Procedure was performed by the undersigned. Informed consent was obtained and all of the patients questions were answered. The standard sterile technique was utilized and appropriate local anesthesia was obtained with 1% licocaine. Mammotome probe was advanced and multiple core samples were obtained and sent to pathology for interpretation. Microclip marker was deployed at the site of biopsy. Post procedural mammogram demonstrates appropriate deployment of radiopaque clip marker. The patient tolerated the procedure well and left the department in stable condition. Pathology results are pending. Impression: Successful stereotactic core biopsy right breast. Pathology Results: Result: Malignant. Pathology and radiology were reviewed. Findings are concordant. 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 See Surgical Pathology Cancer Case Summary and comment. Overall Assessment: Malignant Management: Surgical Consultation of the right breast. Electronically signed and approved by: Trey Kendrick M.D. Radiologis
== END ==
LOC: RADMAMWWP 08:05
PROVIDERS: ATTEND Surgery
DX: D05.11 Intraductal carcinoma in situ of right breast (principal); N60.21 Fibroadenosis of right breast; R92.8 Other abnormal and inconclusive findings on diagnostic imaging of breast
CPT/HCPCS: 88305; 88342; 88341; 19081; A4648; J2001

== ENCOUNTER → 2024-04-09 | Day surgery (SDC) | payer MEDICARE, OTHER ==
--- NOTE | 2024-04-16 10:35 | USB ---
Risk Values: Natalia 5 year model risk: 3.6%. NCI Lifetime model risk: 10.2%. Prior Study Comparison: 09/05/2023 Right MG 3D work up w/cad RT, [facility]. 09/15/2023 Right MG diagnostic mammo RT wo CAD, [facility]. 03/19/2024 Right US breast limited RT, [facility]. 03/19/2024 Right MG 3D diag mammo w/cad RT, [facility]. Pathology Description: Location: 12 o'clock. Marker Left Behind. Needle Type: Celero Cores: 4 Gauge: 12 The procedure of ultrasound guided core biopsy was explained to the patient. Benefits, alternatives, and risks were discussed. An informed consent was then obtained. The patient was placed in supine positioning for imaging and for the procedure. The overlying skin was prepped and draped in usual sterile fashion. Lidocaine buffered with bicarbonate was used as anesthetic into the skin and subcutaneous tissue up to area of concern in the right 12:00 breast. Under ultrasound guidance, a 12-gauge vacuum assisted biopsy gun device was used to obtain 4 core samples. Following this, a biopsy clip was left in lesion. The patient tolerated the procedure well without any immediate complication. The patient was kept in the radiology department for short stay after the procedure and then discharged home in stable condition. Postprocedure mammogram: The patient was transferred to mammography for physician ordered post procedure mammogram for clip placement verification. Impression: Successful, uncomplicated ultrasound guided core biopsy of area of concern in the right 12:00 breast, full pathology results to follow. Pathology Results: Result: Benign, Fibroadenoma. Pathology and radiology were reviewed. Findings are concordant. RIGHT BREAST, 12:00, ULTRASOUND GUIDED NEEDLE CORE BIOPSY: Fibroadenoma and background fibrocystic changes. Overall Assessment: Benign Management: Surgical Consultation of the right breast. Electronically signed and approved by: Trey Kendrick M.D. Radiologis
== END ==
LOC: RADUSWWP 07:57
PROVIDERS: ATTEND Surgery
DX: D24.1 Benign neoplasm of right breast (principal); R92.8 Other abnormal and inconclusive findings on diagnostic imaging of breast
CPT/HCPCS: 88305; 19083; A4648

== ENCOUNTER 2024-04-12 10:19 | Inpatient (IN) | payer MEDICARE, OTHER ==
[2024-04-10 09:00] VITALS: BMI 27.1
--- NOTE | 2024-04-12 07:49 | P.HPOR ---
History of Present Illness H&P Date: 04/12/24 Chief Complaint: Left knee pain The patient is a 69-year-old female who presents with progressively worsening left knee pain. She notes initially after her total knee arthroplasty in April 2022 she did recently well. She's had progressive pain over the past several months. She is having pain with weightbearing activities and at rest. She denies any fevers or chills. She denies any traumatic event. She had an uncomplicated postoperative course. Review of Systems As per HPI Past Medical History Past Medical History: Hearing Disorder / Deafness Additional Past Medical History / Comment(s): left knee pain and swelling, Tinnitis, "Liver enzymes showed they were high.""The ultrasound showed nothing wrong." Recent Rt breast bx area covered with steristrips 04/09/24 (6 months ago found a lump non-cancerous- now they said it looks different. they want to double check). Torn meniscus lt knee. History of Any Multi-Drug Resistant Organisms: None Reported Past Surgical History: Breast Surgery, Hysterectomy, Orthopedic Surgery, Tonsillectomy Additional Past Surgical History / Comment(s): Left knee replacement March 2022. fibrocystic tumor removed left breast-40 years ago., 2 bx rt breast 04/09/24. Bilat cataract surgery. Past Anesthesia/Blood Transfusion Reactions: Motion Sickness, Postoperative Nausea & Vomiting (PONV) Additional Past Anesthesia/Blood Transfusion Reaction / Comment(s): "severe PONV". No hx of blood transfusion. Smoking Status: Never smoker - Past Family History Father Family Medical History: Cancer Additional Family Medical History / Comment(s): Colon cancer Sister(s) Family Medical History: Cancer, Deep Vein Thrombosis (DVT) Additional Family Medical History / Comment(s): leukemia Medications and Allergies Home Medications Medication Instructions Recorded Confirmed Type Ibuprofen [Motrin] 600 mg PO Q8HR PRN 03/20/24 04/10/24 History Tylenol(Unknwn Dose) 1 dose PO Q6H PRN 04/10/24 04/10/24 History Allergies Allergy/AdvReac Type Severity Reaction Status Date / Time azithromycin Allergy Rash/Hives Verified 04/10/24 08:47 [From Zithromax Z-Lambert] Sulfa (Sulfonamide Allergy Rash/Hives Verified 04/10/24 08:47 Antibiotics) Physical Examination - Knee left Varus alignment in stance: normal Tenderness with palpation: anterior, lateral Pain: throughout ROM Gait: limping ROM: extension: -15 degrees ROM: flexion: 130 degrees Strength: extension: 5/5 Strength: flexion: 5/5 Meniscal tests: lateral joint line pain: positive Results Patient is a well-developed well-nourished female proximally 5 foot 6, 168 pounds of mesomorphic hallux. HEENT exam is nonfocal, neck is supple. She has painless passive motion of left hip. Straight leg raise negative. She tendon but the distal lateral femur and proximal tibia. Collaterals are stable, no gross flexion instability is noted. Her distal neurovascular appears intact in the left lower extremity. Laboratory results from 04/05/2024 shows ESR 13, C- reactive protein 0.4, WBC count 6.97. - Diagnostic results Knee x-ray: image reviewed (2 views of the left knee obtained in the office show a total total knee arthroplasty with no definite lucencies or loosening. 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 Plan: I talked with patient at length regarding her condition along with treatment options. At this point she is quite symptomatic having pain with normal activities that limits her. After a thorough discussion she opts to proceed with surgery. We will plan to proceed with revision left total knee arthroplasty. We will obtain a frozen section to rule out indolent infection. Risks and benefits were discussed at length in layman's terms.
[~2024-04-12 10:19] MED LIST changes: -ACETAMINOPHEN TAB 500 MG TAB PO PRN; -DEXAMETHASONE SOD PHOSPHATE 4 MG/ML 1 ML VIAL IV ONE; -HYDROcodone/APAP 5-325MG 1 EACH TAB PO ONE; -HYDROcodone/APAP 5-325MG 1 EACH TAB PO PRN; -HYDROcodone/APAP 7.5-325MG 1 EACH TAB PO PRN; -KETOROLAC 15 MG/ML 1 ML VIAL ONE; -LACTATED RINGERS 1,000 ML IV ONE; -LIDOCAINE 2% INJ 20 MG/ML (2 ML VIAL) ONE; -MELOXICAM 7.5 MG TAB PO PRN; -MIDAZOLAM 2 MG/2 ML VIAL IVP ONE; -NALOXONE 0.4 MG/ML 1 ML VIAL IV PRN; -ONDANSETRON 4 MG/2 ML VIAL IVP ONE; -ONDANSETRON 4 MG/2 ML VIAL IVP PRN; -PROPOFOL 10 MG/ML 20 ML VIAL IV ONE; -RIVAROXABAN 10 MG TAB PO SCH; -ROPIVACAINE 0.2%-NS ON-Q PUMP 1,090 MG, EMPTY PAIN BALL 1 EACH MISCELLANE PRN; -ROPIVACAINE 0.2%-NS ON-Q PUMP 2 MG/ML EACH MISCELLANE ONE; -ROPIVACAINE 5MG/ML 20ML VIAL ONE; -SENNOSIDES-DOCUSATE SODIUM 1 EACH TAB PO SCH; +TRANEXAMIC 1,000 MG/100ML-NACL 1,000 MG in SALINE 1 100ML.BAG IVPB PRN; -TRANEXAMIC ACID IN NACL,ISO-OS 1,000 MG in SALINE 1 100ML.BAG IVPB PRN; -TRANEXAMIC ACID IN NACL,ISO-OS 1,000 MG/100 ML BAG ONE; -ceFAZolin 1,000 MG in SODIUM CHLORIDE 0.9% 1,000 ML IRRIGATION ONE; -diphenhydrAMINE 50 MG/ML 1 ML VIAL ONE; -fentaNYL (PF) 50 MCG/ML 2 ML AMP IVP ONE; +fentaNYL (PF) 50 MCG/ML 2 ML AMP IVP PRN; -fentaNYL (PF) 50 MCG/ML 2 ML AMP ONE
[2024-04-12] MEDS: ACETAMINOPHEN TAB 500 MG TAB PO PRN (10:53)
[2024-04-12] MEDS: MELOXICAM 7.5 MG TAB PO PRN (10:53)
[2024-04-12] MEDS: DEXAMETHASONE SOD PHOSPHATE 4 MG/ML 1 ML VIAL IV ONE (10:54)
[2024-04-12] MEDS: ONDANSETRON 4 MG/2 ML VIAL IVP ONE (11:16)
[2024-04-12] MEDS: LACTATED RINGERS 1,000 ML IV SCH (11:17)
[2024-04-12] MEDS: IV FLUID CONTINUATION 1,000 ML IV ONE (11:19)
[2024-04-12] MEDS: MIDAZOLAM 2 MG/2 ML VIAL IV PRN (11:32)
[2024-04-12] MEDS ORDERED: PHENYLEPHRINE-0.9% NACL SYG 1,000 MCG/10 ML SYRINGE ONE (13:19)
[2024-04-12] MEDS ORDERED: ROPIVACAINE 5 MG/ML 30 ML VIAL ONE (13:19)
[2024-04-12] MEDS ORDERED: TRANEXAMIC 1,000 MG/100ML-NACL PREMIX BAG ONE (13:19)
[2024-04-12] MEDS ORDERED: fentaNYL (PF) 50 MCG/ML 2 ML AMP ONE (13:19)
[2024-04-12] MEDS ORDERED: MIDAZOLAM 2 MG/2 ML VIAL ONE (13:19)
[2024-04-12] MEDS ORDERED: HYDROmorphone (PF) 1 MG/ML ONE (13:19)
[2024-04-12] MEDS ORDERED: PROPOFOL 10 MG/ML 20 ML VIAL IV ONE (13:19)
[2024-04-12] MEDS: ceFAZolin 3,000 MG in SODIUM CHLORIDE 0.9% IRRIGATIO 3,000 ML IRRIGATION ONE (14:08)
[2024-04-12] MEDS: LACTATED RINGERS 1,000 ML IV ONE (14:36)
[2024-04-12] MEDS ORDERED: NALOXONE 0.4 MG/ML 1 ML VIAL IV PRN (15:43)
[2024-04-12] MEDS ORDERED: MAGNESIUM HYDROXIDE 2,400 MG/30 ML CUP PO PRN (15:43)
[2024-04-12] MEDS ORDERED: HYDROmorphone 0.5 MG/0.5 ML SYRINGE IVP PRN ×2 (15:43)
[2024-04-12] MEDS ORDERED: hydrOXYzine pamoate 25 MG CAP PO PRN (15:43)
[2024-04-12] MEDS ORDERED: HYDROcodone/APAP 7.5-325MG 1 EACH TAB PO PRN (15:43)
[2024-04-12] MEDS: ROPIVACAINE 1,100 MG, SODIUM CHLORIDE 0.9% 500 ML 330 ML, EMPTY PAIN BALL 1 EACH MISCELLANE PRN (16:22)
[2024-04-12] MEDS: droPERidol 5 MG/2 ML VIAL IVP ONE (16:39)
--- NOTE | 2024-04-12 16:47 | XR ---
EXAMINATION TYPE: XR knee limited LT DATE OF EXAM: 04/12/2024 COMPARISON: NONE HISTORY: 69-year-old female evaluation for postoperative abnormality and alignment TECHNIQUE: 2 views FINDINGS: Images show revision, short stemmed and hinged left total knee arthroplasty. Both distal fe moral and proximal tibial components of the prosthesis are well seated without progressive fracture. Alignment grossly anatomic. There is soft tissue swelling with soft tissue air as well as intra-artic ular air related to recent operation. IMPRESSION: Revision, hinged and short stemmed left total knee arthroplasty with recent postoperative changes. No evident complication.
[2024-04-12] MEDS: ONDANSETRON 4 MG/2 ML VIAL IVP STA (18:40)
[2024-04-12] MEDS ORDERED: ONDANSETRON 4 MG/2 ML VIAL IVP STA (20:18)
--- NOTE | 2024-04-12 20:52 | P.ANPRN ---
Procedure Note - Anesthesia - Nerve Block Performed Left Adductor Canal Infusion Time Out Performed: Yes Date of Procedure: 04/12/24 Procedure Start Time: 11:32 Procedure Stop Time: 11:41 Location of Patient: PreOp Indication: Acute Post-Operative Pain, Requested by Surgeon Sedation Type: Sedate with meaningful contact maintained Preparation: Sterile Prep, Sterile Dressing Position: Supine Catheter: Indwelling Needle Types: Pajunk Needle Gauge: 21 Ultrasound used to visualize needle placement: Yes Ultrasound used to observe medication spread: Yes Blood Aspirated: No Pain Paresthesia on Injection Noted: No Resistance on Injection: Normal Image Stored and Saved: Yes Events: Uneventful and Well Tolerated (Ropivacaine 0.5% 20 cc plus dexamethasone 4 mg)
--- NOTE | 2024-04-12 20:53 | P.ANPRN ---
Procedure Note - Anesthesia - Nerve Block Performed Left iPack Single Time Out Performed: Yes Date of Procedure: 04/12/24 Procedure Start Time: 11:42 Procedure Stop Time: 11:45 Location of Patient: PreOp Indication: Acute Post-Operative Pain, Requested by Surgeon Sedation Type: Sedate with meaningful contact maintained Preparation: Sterile Prep Position: Supine Needle Types: Pajunk Needle Gauge: 21 Ultrasound used to visualize needle placement: Yes Ultrasound used to observe medication spread: Yes Blood Aspirated: No Pain Paresthesia on Injection Noted: No Resistance on Injection: Normal Image Stored and Saved: Yes Events: Uneventful and Well Tolerated (Marcaine 0.5% 25 cc plus dexamethasone 4 mg)
[2024-04-12] MEDS: SENNOSIDES-DOCUSATE SODIUM 1 EACH TAB PO SCH (21:28)
[2024-04-13] MEDS: HYDROcodone/APAP 5-325MG 1 EACH TAB PO PRN (00:13)
[2024-04-13 02:14] VITALS: PULSE 114
[2024-04-13 07:41] VITALS: BP 135/78; RESP 17; TEMP 98.7
[2024-04-13] MEDS: RIVAROXABAN 10 MG TAB PO SCH (08:56)
--- NOTE | 2024-04-13 09:01 | P.OP ---
Date of Procedure: 04/12/24 Preoperative Diagnosis: Painful left total knee arthroplasty with aseptic loosening Postoperative Diagnosis: Same Procedure(s) Performed: Revision left total knee arthroplastyfemoral and tibial components Implants: Depuy TC3 size 3 cemented femoral component with a 13 x 80 mm cemented stem, size 3 tibial component with a 16 x 75 mm press-fit stem and 37 mm metaphyseal cone, 12.5 mm rotating platform articular surface. Anesthesia: spinal Surgeon: Tay Yuan [employer] #1: Mane Rivera Estimated Blood Loss (ml): 50 Pathology: other (Synovial frozen section) Condition: stable Disposition: PACU Indications for Procedure: The patient is a 69-year-old female who underwent previous total knee arthroplasty 2 years ago who presents with progressive pain over the past 6 months. A previous bone scan showed evidence of increased uptake of the distal femoral component indicating aseptic loosening. Laboratory studies were negative for evidence of infection. A discussion of the risks and benefits of operative intervention versus continued conservative measures was made with the patient. She opted to proceed. Operative risks include infection, neurovascular injury, development of blood clots, fracture, possible component loosening/failure and possible need for subsequent procedures was discussed. Informed consent was obtained. Operative Findings: As below Description of Procedure: The patient was brought to the operating room, and after induction of spinal anesthesia the left lower extremity was prepped and draped in a normal fashion. The tourniquet was inflated to 270 mm marker. A longitudinal incision extending 3 finger breaths above the superior pole of patella extending to the medial aspect the tibial tubercle was then made. The skin and subcutaneous tissues were divided sharply. Electrocautery was used for hemostasis. A medial parapatellar arthrotomy was performed. The medial soft tissues to include the superficial and deep portions of the medial collateral ligament were elevated subperiosteally. The patella was everted. A portion of the synovial tissue was resected and sent for frozen section which came back negative for acute inflam mation. The articular surface was then removed. The femoral component was removed with a sagittal saw and flexible osteotomes easily. Minimal bone loss was noted. The tibial component was removed in a similar fashion. The previous cement mantle was removed. The tibia was then reamed up to 16 mm to the appropriate depth. The metaphyseal portion of the tibia was then broached up to 37 mm. A cleanup cut was made over the top of the tibia. The tibia sized most appropriate size 3. The trial component was placed. The femur was then reamed up to 15 mm to the appropriate depth. A distal cutting block was placed planning on 4 mm augment both medial and laterally. The distal cutting block was then placed in the same rotation as the anterior femur. The anterior, posterior, and chamfer cuts were then made. I planned on a 4 mm augment posterior lateral. The trial components were then placed along with a 12.5 mm articular surface. There is good stability in flexion and extension with varus and valgus stress. The previous patellar component appeared to be in good position and well-fixed. The trial components were then removed. The bony surfaces were prepared with pulsatile lavage and dried. The tibial component was then cemented place was fully seated. Excess cement was removed. The femoral component cemented place and was fully seated. Excess cement was removed. The trial 12.5 mm articular surface was placed and the knee was put in full extension. After the cement had sufficiently hardened, the knee was again taken through a range of motion. Again I was able to obtain full flexion and extension with varus and valgus stress. The trial 12.5 mm articular surface was removed and the final one inserted. This was fully seated. Care was taken to avoid any soft tissue interposition. Pulsatile lavage was again utilized. The medial parapatellar arthrotomy was closed with #2 Ethibond suture. The tourniquet was deflated with approximately 90 minutes total tourniquet time. Final hemostasis was obtained with the cautery. There was minimal bleeding therefore a deep drain was not placed. The subcutaneous tissues were reapproximated with interrupted 2-0 Vicryl sutures. The skin was reapproximated with 3-0 subcuticular strata fix suture. Skin tape and adhesive was applied. A sterile dressing was applied. The patient was awoken from sedation and t ransferred to recovery room in good condition. Blood loss was estimated at 50 mL. No complications were incurred. Sponge and needle counts were correct at the end of the case. Mane HART assisted during the major components of this case to include exposure, bone resection, implantation, and closure.
--- NOTE | 2024-04-13 09:31 | P.PN ---
Progress Note - Text 04/13/24 624am 69-year-old female status post total knee replacement by Dr. Alicea. Patient has an On-Q pump for postop pain control with a solution running at 8 cc an hour with a VAS of 2. Dressing clean dry and intact. Plan to continue On-Q pump infusion
[2024-04-13 10:35] LABS: Basophils # (A) 0.03 X 10*3/uL (0.00-0.10); Basophils % (A) 0.2 %; Eosinophils # (A) 0.01 X 10*3/uL (0.04-0.35); Eosinophils % (A) 0.1 %; HCT 38.7 % (37.2-46.3); HGB 12.3 g/dL (12.0-15.0); Lymphocytes # (A) 1.59 X 10*3/uL (0.90-5.00); Lymphocytes % (A) 11.1 %; MCH 31.1 pg (27.0-32.0); MCHC 31.8 g/dL (32.0-37.0); Mean Platelet Volume 11.2 FL (9.5-12.2); Monocytes # (A) 1.12 X 10*3/uL (0.20-1.00); Monocytes % (A) 7.8 %; NRBC Per 100 WBC 0 X 10*3/uL (0.00-0.01); Neutrophils # (A) 11.53 X 10*3/uL (1.80-7.70); Neutrophils % (A) 80.5 %; Platelet Count 244 X 10*3/uL (140-440); RBC 3.95 X 10*6/uL (4.10-5.20); RDW 12.3 % (11.5-14.5); WBC 14.33 X 10*3/uL (4.50-10.00)
--- NOTE | 2024-04-13 11:18 | P.PN ---
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 Patient says she is not having any pain at this time. She says she is not needing to take much [place] at all. She says she has urinated since surgery yesterday without issue. Patient says she does have a walker and cane at home. Patient says she is looking forward to going home today. Patient denies any orthopedic complaints at this time. Patient denies chest pain, fever, shortness breath, nausea, vomiting, change in vision, loss of bowel/bladder control. Objective - Vital Signs Vital signs: Vital Signs Temp 98.7 F 04/13/24 07:07 Pulse 114 H 04/13/24 07:07 Resp 17 04/13/24 07:07 BP 135/78 04/13/24 07:07 Pulse Ox 90 L 04/13/24 07:07 FiO2 Intake & Output 04/12/24 04/13/24 04/13/24 18:59 06:59 18:59 Intake Total 1051 0 Output Total 50 Balance 1001 0 Weight 80.6 kg Intake: IV 1051 Oral 0 Output: Estimated Blood Loss 50 Other: Voiding Method Toilet # Voids 1 2 1 - Exam Left knee: Incision is clean, dry, and intact. The exofin fusion tape is in good condition. There is minimal soft tissue swelling and ecchymosis surrounding the medial and lateral aspects of the incision. Calf is soft, no tenderness with palpation. Plantar flexion, dorsiflexion, EHL, FHL are intact. Sensory exam to light touch throughout the extremity is intact, dorsal pedis pulses 2+. - Labs CBC & Chem 7: 04/13/24 07:20 Labs: Abnormal Lab Results - Last 24 Hours (Table) 04/13/24 Range/Units 07:20 WBC 14.33 H (4.50-10.00) X 10*3/uL RBC 3.95 L (4.10-5.20) X 10*6/uL MCV 98.0 H (80.0-97.0) FL MCHC 31.8 L (32.0-37.0) g/dL Immature Gran # 0.05 H (0.00-0.04) X 10*3/uL Neutrophils # 11.53 H (1.80-7.70) X 10*3/uL Monocytes # 1.12 H (0.20-1.00) X 10*3/uL Eosinophils # 0.01 L (0.04-0.35) X 10*3/uL Assessment and Plan Assessment: 1. 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 Patient stable bedside this morning. Patient did do well with therapy. Discharge home today with health services. 2. Appreciate medical management 3. Pain management -Tylenol; [place] 4. DVT prophylaxis -Xarelto on hospital. Going home with Eliquis 2.5 mg twice daily x 2 weeks 5. GI prophylaxis -senna 6. PT/OT -weightbearing as tolerated with walker 7. Encourage incentive spirometer use 8. Discharge planning -Home today with health services Time with Patient: Less than 30
--- NOTE | 2024-04-13 11:22 | P.DS ---
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 Yuan Surgical procedures: Revision left total knee arthroplasty Brief history: Patient is a 69-year-old female with a history of painful left total knee arthroplasty with aseptic loosening. At this point patient has failed conservative treatment measures and has opted to proceed with a elective revision left total knee arthroplasty. Hospital course: Details of patient's surgery can be found in operative report. Patient tolerated the procedure well and was subsequently transported to orthopedic floor. Patient's orthopeidc and medical care was provided daily. Patient had daily laboratory tests performed for evaluation of overall blood counts. Patient had daily physical therapy to include strengthening range of motion as well as education with walker ambulation. Patient was treated with Xarelto for their postoperative DVT prophylaxis during their inpatient stay. Patient was noted to have a relatively uneventful postoperative course. Patient reported satisfactory pain control with oral pain medications by postoperative day 1. Patient showed satisfactory progress with physical therapy. Patient moved steadily through the program and had no difficulty meeting the goals by postoperative day 1. Given patient's otherwise satisfactory course and having met physical therapy goals, plan is to discharge patient home with health services on postoperative day 1. Discharge condition/disposition: Patient will be discharged home with health services in stable condition. Discharge medications: Instructions are given on resumption of patient's normal daily medications per primary care recommendation, in addition patient will be prescribed [place]; senna; Eliquis 2.5 mg twice daily x 2 weeks. Discharge instructions: 1. Wound care and infection precautions, keep incision dry and covered while showering, no lotions, creams, moisturizers. No soaking, tubs, pools, hottubs. Do not scrub over the incision. 2. Weight-bear as tolerated with walker / cane until follow-up. 3. Ice and elevate when necessary. Do not exceed 20 minutes per hour with ice pack. 4. Utilize compression sleeve until seen at first follow up appointment. 5. Visiting nursing care. 6. Home physical therapy including home CPM. 7. Pain meds and anticoagulants per prescription. 8. Pain medication has potential to cause constipation. Increase oral fluid and fiber intake. Contact primary care provider if you have not had a bowel movement within 48 hours after discharge 9. No anti-inflammatory medication until discussed at first post operative visit, this including Motrin, Aleve, Mobic, Diclofenac. 10. Follow up in office at 2 weeks postop with Yariel Duncan PA-C / Mane Rivera PA-C 11. Follow up with your primary care doctor 7-10 days after discharge. 12. Contact [facility] with any questions, . 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 Procedures: Revision left total knee arthroplasty Patient Condition at Discharge: Good Plan - Discharge Summary Discharge Rx Participant: No New Discharge Prescriptions: No Action Ibuprofen [Motrin] 600 mg PO Q8HR PRN PRN Reason: Pain Tylenol(Unknwn Dose) 1 dose PO Q6H PRN PRN Reason: Pain Discharge Medication List Ibuprofen [Motrin] 600 mg PO Q8HR PRN 03/20/24 [History] Tylenol(Unknwn Dose) 1 dose PO Q6H PRN 04/10/24 [History] Follow up Appointment(s)/Referral(s): Mane Rivera, ARMIN [PHYSICIAN COLORER] - 2 Weeks [facility],Equipment [NON-STAFF] - As Needed (Continuous Passive Motion knee machine) [facility] Visiting Nurse, [NON-STAFF] - As Needed Patient Instructions/Handouts: Knee Replacement (DC), Knee Replacement (GEN) Activity/Diet/Wound Care/Special Instructions: Orthopedic Discharge Instructions: 1. Wound care and infection precautions, keep incision dry and covered while showering, no lotions, creams, moisturizers. No soaking, pools, hot tubs. Do not scrub over incision. 2. Weight-bear as tolerated with walker / cane until follow-up. 3. Ice and elevate when necessary. Do not exceed 20 minutes per hour with ice pack. 4. Utilize compression sleeve until seen at first follow up appointment. 5. Pain meds and anticoagulants per prescription. 6. Pain medication has potential to cause constipation. Increase oral fluid and fiber intake. Contact primary care provider if you have not had a bowel movement within 48 hours after discharge. 7. No anti-inflammatory medication until discussed at first post operative visit, this including Motrin, Aleve, Mobic, Diclofenac. 8. Follow up in office at 2 weeks postop with Yariel Duncan PA-C / Mane Rivera PA-C 9. Follow up with your primary care doctor 7-10 days after discharge. 10. Contact [facility] with any questions, . Keep incision clean, dry, intact. While showering, cover fusion tape with Saran wrap. Keep fusion tape on until follow-up appointment in office in 2 weeks Discharge Disposition: HOME WITH HOME HEALTH SERVICES
--- NOTE | 2024-04-13 22:46 | CONS ---
CONSULTATION REASON FOR CONSULTATION: Advice regarding left knee pain and other medical issues requested by Orthopedics. HISTORY OF PRESENT ILLNESS: This is a 69-year-old woman with a past medical history of DJD, underwent revision of the left total knee arthroplasty for aseptic loosening and painful left total knee by Dr. Yuan. There is no history of chest pain, palpitations, headache, loss of consciousness or seizures. PAST MEDICAL HISTORY: Reviewed, hearing defects, deafness, high liver enzymes, and other medical issues. Rest of the history is reviewed. HOME MEDICATIONS: Reviewed include ibuprofen, rest of medications reviewed. ALLERGIES: Zithromax. FAMILY HISTORY: History of colon cancer. SOCIAL HISTORY: No history of smoking or alcohol. REVIEW OF SYSTEMS: A 14-point review is negative except as mentioned earlier. PHYSICAL EXAMINATION: VITAL SIGNS: Pulse is 114, blood pressure 135/70, respirations 17. HEENT: Conjunctivae normal. NECK: No jugular venous distention. CARDIOVASCULAR: S1, S2. RESPIRATIONS: Diminished at the bases. ABDOMEN: Soft, nontender. LEGS: No edema, no swelling. NERVOUS SYSTEM: Nonfocal. LABORATORY DATA: WBC 14.3. ASSESSMENT: 1. Status post left total knee arthroplasty. 2. History of high liver enzymes. 3. Tachycardia. 4. Elevated WBC. RECOMMENDATIONS AND DISCUSSION: This 69-year-old woman presented with multiple complex medical issues, we will monitor the patient closely. Continue the current medications, continue symptomatic treatment. The patient is medically stable. Otherwise, I would also recommend D-dimer and continue to monitor. DVT prophylaxis. Rest of the recommendations per surgery. Further recommendations to follow. MMODL / IJN: [id number] /
== END 2024-04-13 13:52 | disposition home health service (06) | DRG 468 ==
LOC: 2ORMAIN 10:19 → 4SSUR 15:52
PROVIDERS: ADMIT Orthopaedic Surgery; ATTEND Orthopaedic Surgery
PROC: 0SRD0J9 Replacement of Left Knee Joint with Synthetic Substitute, Cemented, Open Approach (ICD-10-PCS; 2024-04-12)
PROC: 0SBD0ZZ Excision of Left Knee Joint, Open Approach (ICD-10-PCS; 2024-04-12)
PROC: 3E0T3BZ Introduction of Anesthetic Agent into Peripheral Nerves and Plexi, Percutaneous Approach (ICD-10-PCS; 2024-04-12)
PROC: 3E0T33Z Introduction of Anti-inflammatory into Peripheral Nerves and Plexi, Percutaneous Approach (ICD-10-PCS; 2024-04-12)
PROC: 3E0T3BZ Introduction of Anesthetic Agent into Peripheral Nerves and Plexi, Percutaneous Approach (ICD-10-PCS; 2024-04-12)
PROC: 3E0T33Z Introduction of Anti-inflammatory into Peripheral Nerves and Plexi, Percutaneous Approach (ICD-10-PCS; 2024-04-12)
PROC: 0SPD0JZ Removal of Synthetic Substitute from Left Knee Joint, Open Approach (ICD-10-PCS; principal; 2024-04-12 12:30)
DX: T84.033A Mechanical loosening of internal left knee prosthetic joint, initial encounter (principal); G89.18 Other acute postprocedural pain; H91.90 Unspecified hearing loss, unspecified ear; Y79.2 Prosthetic and other implants, materials and accessory orthopedic devices associated with adverse incidents; Z88.1 Allergy status to other antibiotic agents; Z88.2 Allergy status to sulfonamides
CPT/HCPCS: 64448; 64999; 85025; 88305; 88331; 93005

== ENCOUNTER 2024-04-13 16:08 | Emergency (ER) | payer MEDICARE, OTHER ==
[2024-04-13 16:43] VITALS: RESP 18; TEMP 98.1
--- NOTE | 2024-04-13 18:15 | ED ---
Recheck HPI - General Chief Complaint: Recheck/Abnormal Lab/Rx Stated Complaint: Abnormal Labs-came outpt Time Seen by Provider: 04/13/24 16:28 Source: patient, RN notes reviewed, old records reviewed Mode of arrival: ambulatory Limitations: no limitations - History of Present Illness Initial Comments: 69-year-old female with a history of a left knee arthroplasty/revision yesterday who is scented to the emergency department today because of a elevated D-dimer greater than 6. Patient denies any shortness of breath palpitations fevers chills sweats or other symptoms other than stating that her left knee hurts from the surgery. - Related Data Home Medications Medication Instructions Recorded Confirmed Ibuprofen [Motrin] 600 mg PO Q8HR PRN 03/20/24 04/13/24 Acetaminophen Tab [Tylenol Tab] 500 mg PO Q6H PRN 04/13/24 04/13/24 Apixaban [Eliquis] 5 mg PO DIRECTED 04/13/24 04/13/24 Sennosides/Docusate Sodium [Senna 1 tab PO DAILY 04/13/24 04/13/24 Plus 8.6-50 mg Softgel] Previous Rx's Medication Instructions Recorded HYDROcodone/APAP 5-325MG [[place] 1 tab PO Q6HR PRN #28 tab 04/13/24 5-325] Allergies Allergy/AdvReac Type Severity Reaction Status Date / Time azithromycin Allergy Rash/Hives Verified 04/13/24 20:26 [From Zithromax Z-Lambert] Sulfa (Sulfonamide Allergy Rash/Hives Verified 04/13/24 20:26 Antibiotics) STEROIDS Allergy Rash/Hives Uncoded 04/13/24 16:43 Review of Systems ROS Statement: Those systems with pertinent positive or pertinent negative responses have been documented in the HPI. ROS Other: All systems not noted in ROS Statement are negative. Past Medical History Past Medical History: Hearing Disorder / Deafness Additional Past Medical History / Comment(s): left knee pain and swelling, History of Any Multi-Drug Resistant Organisms: None Reported Past Surgical History: Breast Surgery, Hysterectomy, Orthopedic Surgery, Tonsillectomy Additional Past Surgical History / Comment(s): Left knee replacement March 2022. fibrocystic tumor removed left breast, left knee [id number] Past Anesthesia/Blood Transfusion Reactions: Motion Sickness, Postoperative Nausea & Vomiting (PONV) Additional Past Anesthesia/Blood Transfusion Reaction / Comment(s): "severe PONV" Past Psychological History: No Psychological Hx Reported Smoking Status: Never smoker Past Alcohol Use History: None Reported Past Drug Use History: None Reported - Past Family History Father Family Medical History: Cancer Sister(s) Family Medical History: Cancer, Deep Vein Thrombosis (DVT) Additional Family Medical History / Comment(s): leukemia General Exam - General Exam Comments Initial Comments: This is a well-developed well-nourished awake alert oriented x 4 female Limitations: no limitations General appearance: alert, in no apparent distress Head exam: Present: atraumatic, normocephalic, normal inspection Eye exam: Present: normal appearance, PERRL, EOMI. Absent: scleral icterus, conjunctival injection, periorbital swelling ENT exam: Present: normal exam, mucous membranes moist Neck exam: Present: normal inspection, full ROM. Absent: tenderness, meningismus, lymphadenopathy Respiratory exam: Present: normal lung sounds bilaterally. Absent: respiratory distress, wheezes, rales, rhonchi, stridor Cardiovascular Exam: Present: normal rhythm, tachycardia, normal heart sounds. Absent: systolic murmur, diastolic murmur, rubs, gallop, clicks GI/Abdominal exam: Absent: distended, tenderness, guarding, rebound, rigid Extremities exam: Present: full ROM, normal capillary refill, other (Dressing applied to the left anterior knee no evidence of any bleeding no evidence of any lymphangitis or peripheral edema). Absent: tenderness, pedal edema, joint swelling, calf tenderness Back exam: Present: normal inspection Neurological exam: Present: alert, oriented X3, CN II-XII intact Psychiatric exam: Present: normal affect, normal mood Skin exam: Present: warm, dry, intact, normal color. Absent: rash Course Vital Signs 04/13/24 16:39 Temperature 98.1 F Pulse Rate 108 H Respiratory 18 Rate Blood Pressure 104/58 O2 Sat by Pulse 93 L Oximetry Medical Decision Making - Medical Decision Making Interpret the imaging ultrasound shows no definitive evidence of DVT CT angio of the chest shows no evidence of PE. I did discuss this with the patient and her family who was present patient will be discharged she does have MADINA hose bilaterally to be worn also she does have a coupon now for the anticoagulant which she could not afford previously. Was pt. sent in by a medical professional or institution (TANNER Pacheco, RETAIL CLIENT SOLUTIONS ANALYST, urgent care, hospital, or group home...) When possible be specific @ -No Did you speak to anyone other than the patient for history (EMS, parent, family, police, friend...)? What history was obtained from this source @ -Gloria Crain Did you review nursing and triage notes (agree or disagree)? Why? @ -I reviewed and agree with nursing and triage notes Were old charts reviewed (outside hosp., previous admission, EMS record, old EKG, old radiological studies, urgent care reports/EKG's, group home records)? Report findings @ -Old charts were reviewed Differential Diagnosis (chest pain, altered mental status, abdominal pain women, abdominal pain men, vaginal bleeding, weakness, fever, dyspnea, syncope, headache, dizziness, GI bleed, back pain, seizure, CVA, palpatations, mental health, musculoskeletal)? @ -Not applicable EKG interpreted by me (3pts min.). @ -Dictated X-rays interpreted by me (1pt min.). @ -None done CT interpreted by me (1pt min.). @ -Angio of the chest shows no evidence of pulmonary embolism no other abnormality seen U/S interpreted by me (1pt. min.). @ -Sound shows no evidence of any DVT. What testing was considered but not performed or refused? (CT, X-rays, U/S, labs)? Why? @ -None What meds were considered but not given or refused? Why? @ -None Did you discuss the management of the patient with other professionals ( professionals i.e. TANNER Pacheco, RETAIL CLIENT SOLUTIONS ANALYST, lab, RT, psych nurse, social media community manager, wall taper, teacher, textile technical officer, nurse outreach case manager)? Give summary @ -No Was smoking cessation discussed for >3mins.? @ -No Was critical care preformed (if so, how long)? @ -No Were there social determinants of health that impacted care today? How? (Homelessness, low income, unemployed, alcoholism, drug addiction, transportation, low edu. Level, literacy, decrease access to med. care, [facility], rehab)? @ -No Was there de-escalation of care discussed even if they declined (Discuss DNR or withdrawal of care, Hospice)? DNR status @ -No What co-morbidities impacted this encounter? (DM, HTN, Smoking, COPD, CAD, Cancer, CVA, ARF, Chemo, Hep., AIDS, mental health diagnosis, sleep apnea, morbid obesity)? @ -Revision of the left knee prosthesis Was patient admitted / discharged? Hospital course, mention meds given and route, prescriptions, significant lab abnormalities, going to OR and other pertinent info. @ -Hospital course patient was discharged follow-up as directed Undiagnosed new problem with uncertain prognosis? @ -No Drug Therapy requiring intensive monitoring for toxicity (Heparin, Nitro, Insulin, Cardizem)? @ -No Were any procedures done? @ -No Diagnosis/symptom? @ -D-dimer patient postoperative feared condition not found Acute, or Chronic, or Acute on Chronic? @ -Acute Uncomplicated (without systemic symptoms) or Complicated (systemic symptoms)? @ -Default Side effects of treatment? @ -No Exacerbation, Progression, or Severe Exacerbation? @ -No Poses a threat to life or bodily function? How? (Chest pain, [place], [place], pneumonia, PE, COPD, DKA, ARF, appy, cholecystitis, CVA, Diverticulitis, Homicidal, S uicidal, threat to staff... and all critical care pts) @ -No - Lab Data Result diagrams: 04/13/24 18:26 Lab Results 04/13/24 Range/Units 18:26 Sodium 135 L (137-145) mmol/L Potassium 4.4 (3.5-5.1) mmol/L Chloride 103 (98-107) mmol/L Carbon Dioxide 27 (22-30) mmol/L Anion Gap 5 mmol/L BUN 17 (7-17) mg/dL Creatinine 0.83 (0.52-1.04) mg/dL Est GFR (CKD-EPI)AfAm 83 (>60 ml/min/1.73 sqM) Est GFR (CKD-EPI)NonAf 72 (>60 ml/min/1.73 sqM) Glucose 136 H (74-99) mg/dL Calcium 8.7 (8.4-10.2) mg/dL Total Bilirubin 1.4 H (0.2-1.3) mg/dL AST 44 H (14-36) U/L ALT 59 H (4-34) U/L Alkaline Phosphatase 86 (38-126) U/L Total Protein 6.4 (6.3-8.2) g/dL Albumin 3.9 (3.5-5.0) g/dL Disposition Clinical Impression: D-dimer, elevated, Feared condition not demonstrated Disposition: HOME SELF-CARE Condition: Good Additional Instructions: MADINA hose and anticoagulants as directed, follow-up with your surgeon as planned. Is patient prescribed a controlled substance at d/c from ED?: No Referrals: Reinier Aguiar MD [Primary Care Provider] - 1-2 days Time of Disposition: 21:02 Decision Date: 04/13/24 Decision Time: 21:02
--- NOTE | 2024-04-13 19:22 | CT ---
EXAMINATION TYPE: CT angio chest CT DLP: 376.9 mGycm, Automated exposure control for dose reduction was used. DATE OF EXAM: 04/13/2024 7:07 PM COMPARISON: CLINICAL INDICATION:Female, 69 years old with history of PE suspected; abnormal d dimer TECHNIQUE/CONTRAST: CTA scan of the thorax is performed with IV Contrast, patient injected with 100 mL of Isovue 370, MIP images are created and reviewed these are created on a separate workstation.. FINDINGS: There is suboptimal contrast bolus timing. PULMONARY ARTERIES: There is no evidence for a filling defect within the pulmonary vasculature to sug gest acute pulmonary embolism. Pulmonary trunk is normal in size. Trunk measures 2.6 CM. AORTA: Minimal atherosclerosis.. Ascending aorta is 3.2 CM, descending is 2.3 CM. HEART: Mild cardiomegaly. Normal RV/LV ratio. No appreciable pericardial effusion. LOWER NECK: No significant findings. Unremarkable thyroid. MEDIASTINUM: No enlarged nodes by CT size criteria. SOFT TISSUES/AXILLA: Unremarkable soft tissues. No axillary adenopathy. LUNGS/ PLEURA: Mild biapical and bibasilar scarring and/or subsegmental atelectasis. Otherwise clear. AIRWAY: Central airways are patent. MUSCULOSKELETAL: No acute osseous abnormality. Mild/moderate degenerative change of the spine. UPPER ABDOMEN: No significant findings. Liver appears prominent. Mild thickening and nodularity of th e adrenals likely adenomatoid changes. Left renal parapelvic cysts. IMPRESSION: 1. No evidence of pulmonary embolism. 2. Diminished lung volumes with bibasilar subsegmental atelectasis. 3. No other acute chest process demonstrated. 4. Other chronic and likely incidental findings, as described above.
[2024-04-13 19:24] LABS: ALT 59 U/L (4-34); AST 44 U/L (14-36); African American GFR (CKD) 83 (>60 ml/min/1.73 sqM); Albumin 3.9 g/dL (3.5-5.0); Alkaline Phosphatase 86 U/L (38-126); Anion Gap 5 mmol/L; Blood Urea Nitrogen 17 mg/dL (7-17); Calcium 8.7 mg/dL (8.4-10.2); Carbon Dioxide 27 mmol/L (22-30); Chloride 103 mmol/L (98-107); Glucose 136 mg/dL (74-99); Non-African American GFR(CKD) 72 (>60 ml/min/1.73 sqM); Potassium 4.4 mmol/L (3.5-5.1); Sodium 135 mmol/L (137-145); Total Bilirubin 1.4 mg/dL (0.2-1.3); Total Protein 6.4 g/dL (6.3-8.2)
--- NOTE | 2024-04-13 20:35 | US ---
EXAMINATION TYPE: US venous doppler duplex LE BI DATE OF EXAM: 04/13/2024 4:30 PM COMPARISON: NONE CLINICAL INDICATION: Female, 69 years old with history of D-dimer, DVT suspected; Left knee replaceme nt yesterday SIDE PERFORMED: Bilateral TECHNIQUE: The lower extremity deep venous systems examined utilizing real time linear array sonogra phy with graded compression, doppler sonography and color-flow sonography. VESSELS IMAGED: Common Femoral Vein Deep Femoral Vein Greater Saphenous Vein * Femoral Vein Popliteal Vein Small Saphenous Vein * Proximal Calf Veins (* superficial vessels) Left distal femoral vein not seen due to leg swelling Right Leg: Appears negative for DVT Left Leg: Visualized portions appear negative for DVT IMPRESSION: * Left distal femoral vein not seen due to swelling. * Otherwise visualized portions of the left leg appear negative for DVT. * Right leg appears negative for DVT.
[2024-04-13 21:26] VITALS: BP 132/72; PULSE 106
== END 2024-04-13 21:26 | disposition home or self-care (01) ==
LOC: EC 16:08
DX: R79.9 Abnormal finding of blood chemistry, unspecified (principal); Z71.1 Person with feared health complaint in whom no diagnosis is made; Z88.6 Allergy status to analgesic agent; Z88.2 Allergy status to sulfonamides; Z88.8 Allergy status to other drugs, medicaments and biological substances; Z88.1 Allergy status to other antibiotic agents
CPT/HCPCS: 36415; 80053; 93970; 71275; 99284; Q9967

== ENCOUNTER → 2024-04-13 | Outpatient (CLI) | payer MEDICARE, OTHER | END | disposition home or self-care (01) | LOC: LABWHC1 14:58 | PROVIDERS: ATTEND Orthopaedic Surgery | DX: R00.0 Tachycardia, unspecified (principal) | CPT/HCPCS: 36415; 85379 ==

== ENCOUNTER → 2024-04-26 | Outpatient (CLI) | payer MEDICARE, OTHER ==
[2024-04-26 08:23] VITALS: BP 150/77; PULSE 88; RESP 17; TEMP 98.4
--- NOTE | 2024-04-26 09:17 | P.PN ---
Subjective Progress Note Date: 04/26/24 Principal diagnosis: DCIS right breast History of Present Illness H&P Date: 04-26-24 Chief Complaint: mass right breast Princess is a 69 year old female seen in consultation for Dr. Aguiar on 09-28-23 regarding a lesion in the right breast. She had a right breast mammogram on 08-25-23. This led to further workup of the right breast and an ultrasound core biopsy on 09-15-23. This was a fibroadenoma. The lesion was 1.8 by 1.3 cm in size. The patient did not feel anything in her breasts. She gets mammograms every year. Approximately 30 years ago she had a fibroadenoma removed from the left breast. Otherwise she has not had any surgery on her breast. She is not complaining of any pain in her breast. She tolerated the procedure without difficulty. She's not had any recent trauma or infection in the breast. She declined genetic testing at that visit. She had a repeat right breast mammogram and ultrasound on 03-19-24 which showed an area of distortion in the UOQ middle depth, and ultrasound was reecommended. The ultrasound showed a 5 by 4 cm nodule not previously seen fro which biopsy was recommended. Ultrasound biopsy of the nodule showed a fibroadenoma. Stero biopsy of the distortion showed DCIS ER+, ND+. There was question of which clip represented each biopsy, although it is thought the top hat clip represents the stero biopsy. The area of distortion is about 1 cm in size. Tjhese films were personally reviewed and discussed with DR. Stanford. She did not complain of any new lumps masses or nodules of concern in either breast prior to the mammogram and ultrasound in 03-19-2024. This was simply done because she had had a core biopsy of a fibroadenoma to follow-up on that. She had a left knee revision two weeks ago. Her had tripple bypass two weeks ago. Her daughter in law is receiving chemotherapy for breast cancer. Caffeine: 1 can/week of pop nicotine: none chocolate: occasional BCP: used for 4 years in the remote past Family History: sister: breast cancer mets to bones father: colon cancer sister: leukemia Hormonal History: menarche: 14 , breast fed: no, age at first : 21 menopause: hysterectomy in 40's did not take ovaries done for bleeding Surgical History: hysterectomy left knee replacement bilateral cataract surgery left breast surgery tonsillectomy left knee revision 04-12-24 Medical History: no problems Social History: Nicotine: Negative Alcohol: Negative Drugs:negative - Constitutional Constitutional: Denies chills, Denies fever - EENT Eyes: denies blurred vision, denies pain Ears: bilateral: tinnitus, deny: decreased hearing Ears, nose, mouth and throat: Denies headache, Denies sore throat - Breasts Breasts: bilateral: as per HPI - Cardiovascular Cardiovascular: Denies chest pain, Denies shortness of breath - Respiratory Respiratory: Reports cough - Gastrointestinal Gastrointestinal: Denies abdominal pain, Denies diarrhea, Denies nausea, Denies vomiting - Genitourinary (Female) Genitourinary: Denies dysuria, Denies hematuria - Menstruation Menstruation: Reports postmenopausal - Musculoskeletal Musculoskeletal: Reports as per HPI - Integumentary Integumentary: Denies pruritus, Denies rash - Neurological Neurological: Denies numbness, Denies weakness - Psychiatric Psychiatric: Denies anxiety, Denies depression - Endocrine Endocrine: Denies fatigue, Denies weight change - Hematologic/Lymphatic Comment: none - Allergic/Immunologic Allergic/Immunologic: Reports seasonal allergies Past Medical History Additional Past Medical History / Comment(s): left knee pain and swelling, History of Any Multi-Drug Resistant Organisms: None Reported Past Surgical History: Breast Surgery, Hysterectomy, Orthopedic Surgery, Tonsillectomy Additional Past Surgical History / Comment(s): Left knee replacement March 2022. fibrocystic tumor removed left breast Past Anesthesia/Blood Transfusion Reactions: Motion Sickness, Postoperative Nausea & Vomiting (PONV) Additional Past Anesthesia/Blood Transfusion Reaction / Comment(s): "severe PONV" Past Psychological History: No Psychological Hx Reported Smoking Status: Never smoker Past Alcohol Use History: None Reported Past Drug Use History: None Reported - Past Family History Father Family Medical History: Cancer Sister(s) Family Medical History: Cancer, Deep Vein Thrombosis (DVT) Additional Family Medical History / Comment(s): leukemia Medications and Allergies Home Medications Medication Instructions Recorded Confirmed Type No Known Home Medications 09/06/23 09/28/23 History Allergies Allergy/AdvReac Type Severity Reaction Status Date / Time azithromycin Allergy Rash/Hives Verified 09/28/23 08:10 [From Zithromax Z-Lambert] Sulfa (Sulfonamide Allergy Rash/Hives Verified 09/28/23 08:10 Antibiotics) Objective - Constitutional General appearance: Present: cooperative - EENT Eyes: Present: EOMI ENT: Present: hearing grossly normal - Neck Neck: Present: normal ROM - Respiratory Respiratory: bilateral: CTA - Cardiovascular Rhythm: regular Heart sounds: normal: S1, S2 - Integumentary Integumentary Comment(s): scar left knee Integumentary: Present: normal turgor - Musculoskeletal Musculoskeletal: Present: gait normal - Psychiatric Psychiatric: Present: A&O x's 3, appropriate affect, intact judgment & insight - Additional findings Additional findings: Breast Exam: BRA: 38C Inspection: Bilateral grade 2/3 ptosis; mild echymosis at the biopsy sites Palpation: Right breast: Multi-positional exam dense tissue no dominant masses or nodules of concern fibrocystic changes Right axilla: No adenopathy of concern Left breast: Multi-positional exam dense tissue no dominant masses or nodules of concern Left axilla: No adenopathy of concern Assessment and Plan Assessment: Impression: DCIS right breast recent left knee revision/normal will get clearance from Dr. Alicea prior to surgical intervention The patient will consider genetic testing however she states she would not have a mastectomy even if genetic testing were positive it would not change her surgical approach Plan: present at tumor board probable needle localization and lumpectomy right breast possible oncoplastic tissue transfer clearance Dr. Yuan, Dr. Aguiar (have discussed with Dr. Yuan cleared for surgery but wants pre-op antibiotics) genetic testing Risk and benefits of the procedure discussed with the patient and her daug hter-in-law. Risk include but are not limited to bleeding, infection, reaction to the anesthetic. There is also a risk of a positive margin which would necessitate further tissue resection. They understand and wish to proceed. CC: Dr. Aguiar
== END ==
LOC: WWCWWP 07:51
PROVIDERS: ATTEND Surgery
DX: D05.11 Intraductal carcinoma in situ of right breast (principal); D24.1 Benign neoplasm of right breast; Z80.3 Family history of malignant neoplasm of breast; Z88.2 Allergy status to sulfonamides; Z88.1 Allergy status to other antibiotic agents; Z88.8 Allergy status to other drugs, medicaments and biological substances

== ENCOUNTER 2024-05-15 07:09 | Day surgery (SDC) | payer MEDICARE, OTHER ==
[2024-05-11 16:16] VITALS: BMI 27.3
[~2024-05-15 07:09] MED LIST changes: +DEXAMETHASONE SOD PHOSPHATE 4 MG/ML 1 ML VIAL IV ONE; -HYDROmorphone 0.5 MG/0.5 ML SYRINGE IVP PRN; -LIDOCAINE 1% (10MG/ML) FOR IV START INTRADERMA PRN; +MIDAZOLAM 2 MG/2 ML VIAL IV PRN; -TRANEXAMIC 1,000 MG/100ML-NACL 1,000 MG in SALINE 1 100ML.BAG IVPB PRN; -fentaNYL (PF) 50 MCG/ML 2 ML AMP IVP PRN
[2024-05-15] MEDS: IV FLUID CONTINUATION 1,000 ML IV ONE (08:15)
[2024-05-15] MEDS: LACTATED RINGERS 1,000 ML IV SCH (08:17)
[2024-05-15] MEDS: ALPRAZolam 0.25 MG TAB PO STA (08:17)
[2024-05-15] MEDS: ACETAMINOPHEN TAB 500 MG TAB PO PRN (08:18)
[2024-05-15] MEDS: LIDOCAINE 1% INJ 10MG/ML (20 ML MDV) SQ ONE (08:54)
--- NOTE | 2024-05-15 09:26 | P.NAPBC ---
NAPBC Queries - NAPBC Queries Was patient's case review presented at [facility] tumor board? If no, comment.: Yes Was patient's pathology reviewed at [facility]? If no, comment.: Yes Was breast conservation surgery offered? If no, comment.: Yes Was sentinel node biopsy offered? If no, comment.: Yes (discussed and felt not needed) Was diagnosis confirmed by percutaneous core biopsy? If no, comment.: Yes Is patient mastectomy patient?: No Was a preop referral to reconstructive surgeon offered?: No Clinical Stage: right breast DCIS
[2024-05-15] MEDS: ONDANSETRON 4 MG/2 ML VIAL IVP ONE (09:33)
[2024-05-15] MEDS: HEPARIN SODIUM,PORCINE 5,000 UNIT/ML 1 ML VIAL SQ PRN (09:33)
[2024-05-15] MEDS: SCOPOLAMINE 1 MG/72 HR PATCH TRANSDERM STA (09:34)
[2024-05-15] MEDS ORDERED: MIDAZOLAM 2 MG/2 ML VIAL ONE (09:44)
[2024-05-15] MEDS ORDERED: KETOROLAC 15 MG/ML 1 ML VIAL ONE (09:44)
[2024-05-15] MEDS ORDERED: diphenhydrAMINE 50 MG/ML 1 ML VIAL ONE (09:44)
[2024-05-15] MEDS ORDERED: ACETAMINOPHEN IV (For NPO) 1,000 MG/100 ML VIAL ONE (09:44)
[2024-05-15] MEDS ORDERED: fentaNYL (PF) 50 MCG/ML 2 ML AMP ONE (09:44)
[2024-05-15] MEDS ORDERED: LIDOCAINE 1% INJ 10MG/ML (20 ML MDV) ONE (09:44)
[2024-05-15] MEDS ORDERED: PROPOFOL 10 MG/ML 20 ML VIAL IV ONE (09:44)
[2024-05-15] MEDS: LACTATED RINGERS 1,000 ML IV ONE ×2 (10:31→10:49)
--- NOTE | 2024-05-15 11:11 | P.BCAON ---
Date of Procedure: 05/15/24 Preoperative Diagnosis: Right breast ductal carcinoma in situ Postoperative Diagnosis: Same Procedure(s) Performed: Right breast needle localization lumpectomy, oncoplastic tissue transfer 74 cm Anesthesia: GETA Surgeon: Manda Romero Estimated Blood Loss (ml): 20 IV fluids (ml): 1,100 Pathology: other (Breast tissue) Condition: stable Disposition: same day Indications for Procedure: Right breast DCIS Operative Findings: Dense breast tissue/radiograph of specimen reveals lesion of concern Description of Procedure: The patient was seen initially in the radiology department. Following needle localization of the area of concern she was brought to the operative suite. Following induction of anesthesia the right breast was prepped and draped in a sterile fashion. An incision was made and carried down to the shaft of the needle. Surrounding tissue was excised. The specimen was 9 cm x 4 cm. The specimen was painted for orientation. Radiograph of the specimen revealed the lesion of concern had been removed. Following this a superior pillar 6 x 4 cm was formed. An inferior pillar 6 x 3 cm was formed. The wound was well irrigated. Hemostasis was attained using the electrocautery device as well as the harmonic scalpel. Titanium clips were placed. Surgicel in powder form was placed. The 2 pillars were brought together using 3-0 Vicryl suture. Oncoplastic tissue transfer was 74 cm. The subcutaneous tissue was closed using 3-0 Vicryl suture. The skin was closed using 4-0 Monocryl. 10 cc of 1% lidocaine was injected into the incision. Surgical glue was placed. The patient tolerated the procedure in stable condition. All instrument and sponge counts were correct at the end of the case.
[2024-05-15 11:38] VITALS: TEMP 97.1
[2024-05-15] MEDS: HYDROmorphone 0.5 MG/0.5 ML SYRINGE IVP PRN (12:06)
[2024-05-15 12:52] VITALS: RESP 18
[2024-05-15 13:28] VITALS: BP 122/79; PULSE 76
--- NOTE | 2024-05-15 14:04 | MM ---
Electronically signed and approved by: Trey Kendrick M.D. Radiologis
== END 2024-05-15 14:04 | disposition home or self-care (01) ==
LOC: OR 07:09
PROVIDERS: ATTEND Surgery
DX: D05.11 Intraductal carcinoma in situ of right breast (principal); H93.19 Tinnitus, unspecified ear; Z88.2 Allergy status to sulfonamides; Z88.1 Allergy status to other antibiotic agents
CPT/HCPCS: 76098; 19281; C1819; J2250; J1200; J1644; J0690; J2405; J2001; J3010; J0131; J1885; J2704; J1170

== ENCOUNTER → 2024-05-31 | Outpatient (CLI) | payer MEDICARE, OTHER ==
--- NOTE | 2024-07-06 09:28 | WWPN ---
[facility] - PROGRESS NOTE Princess is a 69-year-old female, status post right breast lumpectomy on 05/15/2024. She presents for a postoperative visit. Pathology revealed low grade DCIS, all margins negative, the lesion was 6 mm in size. The patient is doing well without complaints. PHYSICAL EXAMINATION: Incision is clean and dry. PLAN: Follow up with Radiation Oncology. Follow up Medical Oncology. Follow up here in 4 months. MMODL / IJN: [id number] /
== END ==
LOC: WWCWWP 17:38
PROVIDERS: ATTEND Surgery